=== PATIENT | female | born 1955 | race Caucasian/White ===

== ENCOUNTER → 2019-12-19 12:27 | Outpatient (CLI) | payer MEDICARE, OTHER, SELFPAY ==
--- NOTE | ~2019-12-19 | MM_ITS ---
EXAMINATION: MM screening cheli BI w cristina HISTORY: Screening TECHNIQUE: Craniocaudal and mediolateral oblique 3-D tomosynthesis images were obtained and synthetic 2-D images were generated. CAD analysis was submitted and interpreted. COMPARISON: Comparison to multiple prior studies sequentially, with oldest reviewed study dated 12/04. BREAST PARENCHYMAL COMPOSITION: There are scattered areas of fibroglandular density. FINDINGS: There is no evidence of suspicious mass, calcification, or architectural distortion to sugg est malignancy in either breast. There has been no suspicious interval change. IMPRESSION: 1. No mammographic evidence of malignancy. 2. Recommend routine screening mammography in one year. BI-RADS Category 1: Negative Reviewed, dictated and finalized at location A.
== END ==
PROVIDERS: PCP Internal Medicine; Visit Provider Nurse Practitioner
DX: Z12.31 Encounter for screening mammogram for malignant neoplasm of breast (principal)
CPT/HCPCS: 77063; 77067

== ENCOUNTER 2019-12-28 15:08 | Outpatient (CLI) | payer MEDICARE, OTHER, SELFPAY ==
--- NOTE | ~2019-12-28 | US_ITS ---
EXAMINATION: US thyroid DATE: 12/28/2019 15:38 INDICATION: Nontoxic single thyroid nodule. TECHNIQUE: Multiple ultrasound images of the thyroid were obtained. COMPARISON: None. FINDINGS: The right thyroid lobe measures 4.5 x 2.8 x 2.2 cm. The left thyroid lobe is not visualized and is r eportedly surgically absent. 7 mm simple appearing anechoic cyst in the right thyroid. Wider than stephen l complex mixed solid hypoechoic and anechoic cystic nodule with smooth margins and without echogenic foci at the inferior right thyroid lobe measuring 1.1 cm in maximal diameter without internal echoge [place] foci. (TI-RADS 3, mildly suspicious , FNA if >=2.5 cm, annual followup is >1.5 cm). IMPRESSION: 1. 1.1 cm TI RADS 3 right thyroid nodule and 6 mm simple cyst neither meeting criteria for biopsy or follow-up. 2. Status post left thyroidectomy. Reviewed, dictated and finalized at location B. IMPRESSION: 1. 1.1 cm TI RADS 3 right thyroid nodule and 6 mm simple cyst neither meeting c riteria for biopsy or follow-up. 2. Status post left thyroidectomy.
== END 2019-12-28 15:09 | disposition home or self-care (01) ==
PROVIDERS: PCP Internal Medicine; Visit Provider Otolaryngology
DX: E04.1 Nontoxic single thyroid nodule (principal)
CPT/HCPCS: 76536

== ENCOUNTER 2020-12-30 11:09 | Outpatient (CLI) | payer MEDICARE, SELFPAY ==
--- NOTE | ~2020-12-30 | US_ITS ---
EXAMINATION: US thyroid EXAM DATE: 12/30/2020 11:39 INDICATION: Thyroid nodule E04.1 Nontoxic single thyroid nodule. TECHNIQUE: Multiple grayscale and Doppler images of the thyroid were obtained (by a technologist who performed the scan) and subsequently reviewed. Individual nodules and recommendations may be reporte d in accordance with TI-RADS system as designated by the 2017 ACR White Paper TI-RADS committee. Comp hernandez is made to prior examination from 12/28/2019. FINDINGS: The right there are lobe measures 4.1 x 1.7 x 2.1 cm. The left thyroid lobe has been resected. There is an unremarkable left thyroidectomy bed. Several right thyroid lobe nodules, largest measuring 1.1 cm, stable. IMPRESSION: 1. Mild right thyromegaly with stable nodules, likely benign. 2. Unremarkable left thyroidectomy bed. Return to clinical follow-up and if additional palpable abnormality develops a repeat ultrasound can be obtained. Reviewed, dictated and finalized at location A.
== END 2020-12-30 11:10 | disposition home or self-care (01) ==
LOC: ANHIMG 11:15
PROVIDERS: PCP Internal Medicine; Visit Provider Otolaryngology
DX: E04.1 Nontoxic single thyroid nodule (principal)
CPT/HCPCS: 76536

== ENCOUNTER → 2021-01-08 11:07 | Outpatient (CLI) | payer MEDICARE, SELFPAY ==
--- NOTE | ~2021-01-08 | DEXA_ITS ---
Bone Density Report Name: Marianne Garcia Age: 65 Sex: Female Ethnicity: White Date of : 1955 Indication: postmenopausal osteoporosis; monitoring treatment; hysterectomy; Referring Provider: MARY ANNE, EDWARDO Study: Bone densitometry was performed. Exam Date: January 08, 2021 Accession number: [id number] Bone Density: Region BMD T-score Z-score Classification AP Spine (L1-L4) 0.831 -2.0 0.0 Osteopenia Femoral Neck (Left) 0.700 -1.3 0.3 Osteopenia Total Hip (Left) 0.838 -0.9 0.5 Normal Femoral Neck (Right) 0.740 -1.0 0.7 Normal Total Hip (Right) 0.829 -0.9 0.4 Normal Total Hip Mean 0.834 -0.9 0.5 Normal World Health Organization criteria for BMD impression classify patients as: Normal (T-score at or above -1.0), Osteopenia (T-score between -1.0 and -2.5), or Osteoporosis (T-score at or below -2.5). 10-year Fracture Risk: FRAX not reported because: Treated for osteoporosis Previous Exams: Region Exam Age BMD T-score BMD Change BMD Change Date g/cm2 vs Baseline vs Previous AP Spine(L1-L4) 01/08/2021 65 0.831 -2.0 0.038* 0.097* 12/14/2018 63 0.734 -2.8 -0.060* -0.016 12/08/2016 61 0.750 -2.7 -0.043* 0.007 11/28/2014 59 0.743 -2.8 -0.051* -0.046* 11/27/2012 57 0.789 -2.3 -0.005 0.020 11/23/2010 55 0.768 -2.5 -0.025* -0.011 11/15/2008 53 0.779 -2.4 -0.014 -0.014 10/17/2006 51 0.793 -2.3 Total Hip(Left) 01/08/2021 65 0.838 -0.9 0.054* -0.012 12/14/2018 63 0.849 -0.8 0.066* 0.007 12/08/2016 61 0.842 -0.8 0.058* 0.027 11/28/2014 59 0.815 -1.0 0.032* 0.041* 11/27/2012 57 0.775 -1.4 -0.009 -0.013 11/23/2010 55 0.788 -1.3 0.004 -0.006 11/15/2008 53 0.794 -1.2 0.010 0.010 10/17/2006 51 0.784 -1.3 Total Hip(Right) 01/08/2021 65 0.829 -0.9 0.069* -0.018 12/14/2018 63 0.847 -0.8 0.087* 0.040* 12/08/2016 61 0.807 -1.1 0.048* -0.015 11/28/2014 59 0.822 -1.0 0.063* -0.003 11/27/2012 57 0.825 -1.0 0.066* 0.074* 11/23/2010 55 0.751 -1.6 -0.008 -0.016 11/15/2008 53 0.768 -1.4 0.008 0.008 10/17/2006 51 0.760 -1.5 *Denotes significance at 95% confidence level, LSC for AP Spine =
--- NOTE | ~2021-01-08 | MM_ITS ---
EXAMINATION: MM screening cheli BI w cristina HISTORY: Screening TECHNIQUE: Craniocaudal and mediolateral oblique 3-D tomosynthesis images were obtained and synthetic 2-D images were generated. CAD analysis was submitted and interpreted. COMPARISON: Comparison to multiple prior studies sequentially, with oldest reviewed study dated 12/08. BREAST PARENCHYMAL COMPOSITION: There are scattered areas of fibroglandular density. FINDINGS: There is no evidence of suspicious mass, calcification, or architectural distortion to sugg est malignancy in either breast. There has been no suspicious interval change. IMPRESSION: 1. No mammographic evidence of malignancy. 2. Recommend routine screening mammography in one year. BI-RADS Category 1: Negative Reviewed, dictated and finalized at location A.
== END ==
PROVIDERS: PCP Internal Medicine; Visit Provider Nurse Practitioner
DX: Z12.31 Encounter for screening mammogram for malignant neoplasm of breast (principal); M81.0 Age-related osteoporosis without current pathological fracture; M85.88 Other specified disorders of bone density and structure, other site; M85.852 Other specified disorders of bone density and structure, left thigh
CPT/HCPCS: 77063; 77067; 77080

== ENCOUNTER → 2021-11-04 11:49 | Outpatient (CLI) | payer MEDICARE, SELFPAY ==
--- NOTE | ~2021-11-04 | US_ITS ---
EXAMINATION: US thyroid DATE: 11/04/2021 12:06 INDICATION: Nontoxic single thyroid nodule. TECHNIQUE: Multiple ultrasound images of the thyroid were obtained. COMPARISON: Thyroid ultrasound 12/30/2020, 12/28/2019 FINDINGS: The right thyroid lobe measures 4.9 x 2.1 x 2.1 cm. The left thyroid lobe is absent. In the right thy roid lobe, there is a 12 mm solid, hypoechoic, wider than tall nodule with smooth margin without echo genic foci (TI-RADS TR4), stable in size from 12/28/19. In the right thyroid lobe, there is a 6 mm ellen d, hypoechoic, wider than tall nodule with smooth margin without echogenic foci (TR4). In the right t hyroid lobe, there is a 7 mm solid, hypoechoic, wider than tall nodule with smooth margin without ech ogenic foci (TR4). IMPRESSION: 1. Multinodular goiter. Consider thyroid ultrasound in one year. Reviewed, dictated and finalized at location A.
== END ==
PROVIDERS: PCP Internal Medicine; Visit Provider Otolaryngology
DX: E04.2 Nontoxic multinodular goiter (principal)
CPT/HCPCS: 76536

== ENCOUNTER → 2022-01-21 10:19 | Outpatient (CLI) | payer MEDICARE, SELFPAY ==
--- NOTE | ~2022-01-21 | MM_ITS ---
EXAMINATION: MM screening cheli BI w cristina HISTORY: Screening mammogram TECHNIQUE: Craniocaudal and mediolateral oblique 3-D tomosynthesis images were obtained and synthetic 2-D images were generated. CAD analysis was submitted and interpreted. COMPARISON: 01/08/2021, 12/19/2019, 12/14/2018 bilateral screening mammogram examinations BREAST PARENCHYMAL COMPOSITION: There are scattered areas of fibroglandular density. FINDINGS: There is no evidence of suspicious mass, calcification, or architectural distortion to sugg est malignancy in either breast. There has been no suspicious interval change. IMPRESSION: 1. No mammographic evidence of malignancy. 2. Recommend routine screening mammography in one year. BI-RADS Category 1: Negative Reviewed, dictated and finalized at location A.
== END ==
PROVIDERS: PCP Internal Medicine; Visit Provider Obstetrics & Gynecology Gynecology
DX: Z12.31 Encounter for screening mammogram for malignant neoplasm of breast (principal)
CPT/HCPCS: 77063; 77067

== ENCOUNTER 2022-08-23 10:21 | Emergency (ER) | payer MEDICARE, SELFPAY ==
--- NOTE | ~2022-08-23 | XR_ITS ---
EXAMINATION: XR ribs RT 2V w CXR 2V DATE: 08/23/2022 11:00 INDICATION: Right posterior rib pain post fall 4 days prior TECHNIQUE: Frontal and lateral views of the chest and 3 views of the right ribs were obtained. COMPARISON: Chest radiograph dated 04/15/2008 FINDINGS: Hypoplastic bilateral 12th ribs. No rib fractures identified. Mild eventration along the right hemidi aphragm. Mild linear discoid atelectasis/scarring in the left mid and bilateral lower lung zones. No pulmonary edema, pleural effusion or pneumothorax. Cardiomediastinal silhouette is normal. Surgical c lip at the anterior base of the neck likely related to prior reported left thyroidectomy. IMPRESSION: 1. No rib fractures identified. 2. Mild linear discoid atelectasis in the left mid and bilateral lower lung zones. Reviewed, dictated and finalized at location B. IMPRESSION: 1. No rib fractures identified. 2. Mild linear discoid atelectasis in the left mid and bilateral lower lung zon es.
[2022-08-23 10:28] VITALS: BP 154/89; PULSE 91; RESP 20; TEMP 37.7; O2SAT 97
--- NOTE | 2022-08-23 10:28 | ED.FALL ---
HPI - Fall General Chief Complaint: Fall Stated Complaint: Fall Injury/Back/Shortness of Breath Time Seen by Provider: 08/23/22 10:28 Source: patient and RN notes reviewed History of Present Illness HPI Narrative: Patient is a 66-year-old female presents to urgent care with complaints of upper right back pain after a fall on night. Patient states that she has issues ambulating due to chronic left leg/knee pain and arthritis. Patient states that she hit the side of her bed and went down to the floor. Patient states that her right arm twisted behind her back when she fell. Patient states that she did not notice the pain until she was grabbing a lawn chair at the back of her daughter's car on Tuesday and ?heard a pop in her back?. Patient states that it is now hurting to take a deep breath or move in certain motions. Patient states that she takes pain medication for bilateral knee discomfort and has not increased anything due to the fall. Patient denies hitting her head or any loss of consciousness. No other acute complaints. No acute distress noted. Patient aware of the plan of care. Some parts of this dictation were generated by voice recognition software and may contain typographical and/or grammatical inaccuracies. Related Data Home Medications Medication Instructions Recorded Confirmed albuterol sulfate 90 mcg/actuation 1 inhalation inhalation Q4H 12/27/19 01/13/21 aerosol inhaler atorvastatin 80 mg tablet 80 mg PO DAILY 12/27/19 01/13/21 calcium carbonate 260 mg calcium 260 mg PO DAILY 12/27/19 01/13/21 (650 mg) chewable tablet (Albaro-Mint) cholecalciferol (vitamin D3) 1,250 1,250 mcg PO MONTHLY 12/27/19 01/13/21 mcg (50,000 unit) capsule estradiol 10 mcg vaginal tablet 10 mcg vaginal 2XW 12/27/19 01/13/21 (Vagifem) fluticasone propionate 50 1 spray intranasal BID 12/27/19 01/13/21 mcg/actuation nasal spray,suspension (Allergy Relief (fluticasone)) furosemide 20 mg tablet 20 mg PO QAM 12/27/19 01/13/21 omeprazole 20 mg capsule,delayed 20 mg PO DAILY 12/27/19 01/13/21 release telmisartan 40 mg tablet 40 mg PO DAILY 12/27/19 01/13/21 umeclidinium 62.5 mcg-vilanterol 1 inhalation inhalation DAILY 12/27/19 01/13/21 25 mcg/actuation powdr for inhalation (Anoro Ellipta) amlodipine 5 mg tablet mg 08/23/22 Allergies Allergy/AdvReac Type Severity Reaction Status Date / Time Penicillins Allergy Mild hives Verified 01/13/21 08:19 Sulfa (Sulfonamide Allergy Mild hives Verified 01/13/21 08:19 Antibiotics) Review of Systems Review of Systems: CONSTITUTIONAL: Denies fever, chills, or sweats. EYES: Denies visual changes, redness, or discharge. ENT: Denies rhinorrhea, congestion, sore throat, or otalgia. CARDIOVASCULAR: Denies chest pain, palpitations, or edema. RESPIRATORY: Denies cough or dyspnea. Reports of pain with deep breathing GASTROINTESTINAL: Denies abdominal pain, nausea, vomiting, or diarrhea. GENITOURINARY: Denies dysuria or hematuria. SKIN: Denies rash or itching. MUSCULOSKELETAL: Reports of upper back pain and discomfort NEUROLOGIC: Denies headache, numbness, or weakness. All other systems reviewed are negative, except as documented in HPI. [facility] Social History Social History (Updated 01/13/21 @ 08:20 by Hafsa Freedman MA) Smoking status: Never smoker Alcohol intake: never Substance use: never Comments At the time of my signature, I reviewed and agree with the nursing past medical, surgical, social, and family history. There is no relevant family history pertinent to the patient complaint. Exam Narrative: GENERAL: This is a well-nourished, well-developed patient, in no apparent distress. HEAD: normocephalic, atraumatic. EYES: PERRL. Sclera clear/white. Vision is grossly intact. EARS: External ears normal NOSE: External nose normal with no obvious nasal discharge, nares without redness, no rhinorrhea. THROAT: Mucous membranes moist over no NECK: Nec
== END 2022-08-23 11:26 | disposition home or self-care (01) ==
PROVIDERS: Emergency Provider Nurse Practitioner Family; PCP Internal Medicine
DX: M54.89 Other dorsalgia (principal); E78.00 Pure hypercholesterolemia, unspecified; I10 Essential (primary) hypertension
CPT/HCPCS: 71046; 71100; 99213; G0463

== ENCOUNTER 2023-01-17 13:39 | Outpatient (CLI) | payer MEDICARE, SELFPAY ==
--- NOTE | ~2023-01-17 | US_ITS ---
US thyroid INDICATION: Nontoxic thyroid nodule TECHNIQUE: Real-time sonographic images of the thyroid gland were obtained. COMPARISON: Ultrasound dated 11/04/2021 FINDINGS: The right thyroid lobe measures 4.3 x 1.9 x 2 cm. The left thyroid gland is surgically abse nt. There are multiple right thyroid nodules the largest right thyroid nodule is mixed solid and cyst ic, hypoechoic, wider than tall, smoothly marginated without echogenic foci measuring 1.4 x 1.3 x 1.1 cm, TR 3. IMPRESSION: 1. Heterogeneous right thyroid lobe with multiple nodules, largest measuring 1.4 cm, TR3. 3. Recommend follow-up ultrasound in 12 months. Reviewed, dictated and finalized at location L. IMPRESSION: 1. Heterogeneous right thyroid lobe with multiple nodules, largest measuring 1 .4 cm, TR3. 3. Recommend follow-up ultrasound in 12 months.
== END 2023-01-17 13:40 | disposition home or self-care (01) ==
PROVIDERS: PCP Internal Medicine; Visit Provider Otolaryngology
DX: E04.1 Nontoxic single thyroid nodule (principal)
CPT/HCPCS: 76536

== ENCOUNTER → 2023-03-24 10:48 | Outpatient (CLI) | payer MEDICARE, SELFPAY ==
--- NOTE | ~2023-03-24 | DEXA_ITS ---
Bone Density Report Name: EDEL DUGGAN Age: 67 Sex: Female Ethnicity: White Date of : 1955 Indication: osteopenia; monitoring treatment; prior fracture; hysterectomy; postmenopausal Referring Provider: MARY ANNE, EDWARDO Study: Bone densitometry was performed. Exam Date: March 24, 2023 Accession number: [id number] Bone Density: Region BMD T-score Z-score Classification AP Spine (L1-L4) 0.864 -1.7 0.4 Osteopenia World Health Organization criteria for BMD impression classify patients as: Normal (T-score at or above -1.0), Osteopenia (T-score between -1.0 and -2.5), or Osteoporosis (T-score at or below -2.5). Previous Exams: Region Exam Age BMD T-score BMD Change BMD Change Date g/cm2 vs Baseline vs Previous AP Spine(L1-L4) 03/24/2023 67 0.864 -1.7 0.070* 0.033* 01/08/2021 65 0.831 -2.0 0.038* 0.097* 12/14/2018 63 0.734 -2.8 -0.060* -0.016 12/08/2016 61 0.750 -2.7 -0.043* 0.007 11/28/2014 59 0.743 -2.8 -0.051* -0.046* 11/27/2012 57 0.789 -2.3 -0.005 0.020 11/23/2010 55 0.768 -2.5 -0.025* -0.011 11/15/2008 53 0.779 -2.4 -0.014 -0.014 10/17/2006 51 0.793 -2.3 *Denotes significance at 95% confidence level, LSC for AP Spine = 0.022 g/cm2 Clinical Information Provided by Patient: Has had a low trauma fracture Is being treated for osteoporosis Has used the following medications: Prolia (i.e. denosumab), Vitamin D, Calcium Has the following medical conditions: Hysterectomy Patient maximum height was 62.5 Menopause Age: 48 Drinks caffeinated beverages Onset of menses at age 10 Number of children 3 Impression: The patient has low bone mass, based on the Total Spine T-score. The patient has risk factors, including: previous fracture. No significant bone loss was observed. Discussion: PATIENT UNDER TREATMENT WITH NO SIGNIFICANT BMD LOSS SINCE LAST EXAM. In an untreated patient, BMD typically declines with age. A lack of decline or gain is usually a sign that treatment is efficacious and fracture risk is reduced. It is important to ask patients whether they are taking their medications and to encourage continued and appropriate compliance with their osteoporosis therapies to reduce fracture risk. It is also important to review their risk factors and encourage appropriate calcium and vitamin D intakes, exercise, fall prevention and other lifestyle measures. Follow-Up: Consider a repeat BMD and Vertebral Fracture Assessment (VFA) exam in 2 years or sooner if medically necessary, to reassess this patient's status. Reported by: NATALIIA on 03/24/2023 1
--- NOTE | ~2023-03-24 | MM_ITS ---
EXAMINATION: MM screening cheli BI w cristina HISTORY: Screening mammogram TECHNIQUE: Craniocaudal and mediolateral oblique 3-D tomosynthesis images were obtained and synthetic 2-D images were generated. CAD analysis was submitted and interpreted. COMPARISON: 01/21/2022, 01/08/2021, 12/19/2019 and lateral screening mammogram examinations BREAST PARENCHYMAL COMPOSITION: There are scattered areas of fibroglandular density. FINDINGS: There is no evidence of suspicious mass, calcification, or architectural distortion to sugg est malignancy in either breast. There has been no suspicious interval change. IMPRESSION: 1. No mammographic evidence of malignancy. 2. Recommend routine screening mammography in one year. BI-RADS Category 1: Negative Reviewed, dictated and finalized at location A. 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
== END ==
PROVIDERS: PCP Internal Medicine; Referring Provider Obstetrics & Gynecology Gynecology; Visit Provider Nurse Practitioner
DX: Z12.31 Encounter for screening mammogram for malignant neoplasm of breast (principal); M81.0 Age-related osteoporosis without current pathological fracture; M85.88 Other specified disorders of bone density and structure, other site
CPT/HCPCS: 77063; 77067; 77080

== ENCOUNTER 2024-01-20 09:40 | Outpatient (CLI) | payer MEDICARE, SELFPAY ==
--- NOTE | ~2024-01-20 | US_ITS ---
US thyroid INDICATION: Nontoxic thyroid nodule TECHNIQUE: Real-time sonographic images of the thyroid gland were obtained. COMPARISON: No prior studies for comparison. FINDINGS: The right thyroid lobe measures 4.9 x 2.1 x 2.2 cm.. There is a heterogeneous hypoechoic pr edominantly solid right thyroid mass measuring 1.3 x 1.3 x 1.2 cm. This mass is slightly taller than wide, smoothly marginated without echogenic foci. No significant interval change compared with prior examination allowing for differences in technique. IMPRESSION: 1. Stable right thyroid nodule, likely benign. Recommend follow-up ultrasound in 12 months. Reviewed, dictated and finalized at location B.
== END 2024-01-20 09:41 | disposition home or self-care (01) ==
LOC: ANHIMG 09:43
PROVIDERS: Visit Provider Otolaryngology
DX: E04.1 Nontoxic single thyroid nodule (principal)
CPT/HCPCS: 76536

== ENCOUNTER 2024-11-03 08:34 | Emergency (ER) | payer MEDICARE, SELFPAY ==
--- OUTSIDE RECORDS SUMMARY | 2024-11-03 08:36 | XMS_ITS | Encounter Summary ---
Author Organization [facility] Address [address] [place] [address] Phone Care Team Providers Care Head Of English Name Role Phone Juan Li MD Primary Care Provider [phone] Juan Li MD Primary Care Provider [phone] Iftikhar Harrison MD Primary Care Provider [phone] Encounter Details Date Type Department Care Team (Late st Contact Info) Description 11/15/2008 Orders Only [facility] Scanning, Provider Social History Tobacco Use Types Packs/Day Years Used Date Smoking Tobacco: Never Assessed Comments Unknown Sex and Gender Information Value Date Recorded Sex Assigned at Not on file 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 Gender Identity Not on file Sexual Orientation Straight 08/28/2018 1: 45 PM CDT documented as of this encounter Plan of Treatment Not on file documented as of this encounter Procedures Procedure Name Priority Date/Time Associated Diagnosis Comments SCAN - RADIOLOGY/IMAGING 11/15/2008 documented in this encounter Results * SCAN - RADIOLOGY/IMAGING (11/15/2008) Anatomical Region Laterality Modality Other us Provider Scanning Final Result documented in this encounter Visit Diagnoses Not on filedocumented in this encounter Additional Health Concerns Infection Onset Date Last Indicated Resolved Time COVID: Suspected 10/21/2020 10/21/2020 10/21/2020 9:42 AM CDT COVID19 10/21/2020 10/21/2020 11/04/2020 3:05 AM CDT COVID: Recovered Comment:Added based on recent COVID infection. 11/04/2020 11/06/2020 03/04/2021 3:[address] documented as of this encounter Care Teams Head Of English Relationship Specialty Start Date End Date Juan Li MD PCP - General 10/15/13 08/01/23 Juan Li MD PCP - General 11/05/08 10/14/13 Iftikhar Harrison MD [address] [facility] [address] [place] [address] [place] [id number] PCP - General Family Medicine 08/02/23 documented as of this encounter
--- OUTSIDE RECORDS SUMMARY | 2024-11-03 08:36 | XMS_ITS | Referral Summary ---
Author Organization [facility] Address [address] [place] [address] Care Team Providers Care Photonics Engineering Technologist Name Role Phone Iftikhar Harrison MD Primary Care Provider [phone] Encounters Date Type Department Care Team Description 10/29/2024 Orders Only [facility] Infusion Therapy [address] [place] [address] Office [address] [place] [address] Vicky Philip MD 10/05/[address] [place] [address] Vicky Philip MD Treatment Plan Update ([facility] ) 10/05/2024 11:00 AM CDT Office Visit [address] [place] [address] Vicky Philip MD Age-related osteoporosis without current pathological fracture (Primary Dx); Bone loss; Atypical fracture of femur, sequela; Prediabetes 10/05/2024 10:30 AM CDT Clinical Support [address] [place] [address] Age-related osteoporosis without current pathological fracture (Primary Dx); Osteoporosis, unspecified osteoporosis type, unspecified pathological fracture presence 09/11/2024 ACO Quality [facility] Accountable Care Organization [address] [place] [id number] Patricia Lara 08/09/2024 7:30 AM CDT Office Visit [facility] Medical Group Primary [facility] at [place] [address] [facility] [address] [place] [address] Iftikhar Harrison MD Gastroesophageal reflux disease, unspecified whether esophagitis present (Primary Dx); Chest pain, unspecified type; Class 1 obesity due to excess calories with serious comorbidity and body mass index (BMI) of 31.0 to 31.9 in adult; Benign hypertension 08/07/2024 [facility] Post Discharge Follow up phone call [facility] Acute Medicine [address] [place] [address] Mckay Barrera from Last 3 Months Allergies Active Allergy Reactions Criticality Noted Date Comments Michael Inhibitors Cough Low Reaction: cough, Morphine Nausea & Vomiting Medium 09/03/2022 Nitrofurantoin Swelling,Rash Medium Reaction: rash, swelling, Penicillins Rash Medium Reaction: Rash, , Sulfa (Sulfonamide Antibiotics) Hives Medium Sulfanilamide Rash Medium Reaction: Rash, Medications cetirizine (ZyrTEC) 10 mg tablet take 1 tablet (10MG) by oral route every day 0 1 Active omeprazole 20 mg tablet,delayed release (DR/EC) Take 1 tablet (20 mg total) by mouth daily Active acetaminophen 500 mg capsuleIndicati ons:Pain Take 2 capsules (1,000 mg total) by mouth every 6 (six) hours as needed for pain 3 Active ibuprofen 200 mg tab/cap Take 1 tablet/capsule (200 mg total) by mouth as needed Active multivitamin (MULTIPLE VITAMINS ORAL) Take 1 tablet by mouth daily Active CALCIUM ORAL Take 1 tablet/chew tab by mouth daily Active amLODIPine (NORVASC) 10 mg tablet Take 1 tablet (10 mg total) by mouth daily 90 tablet 3 4 Active naproxen (NAPROSYN) 500 mg tablet Take 1 tablet (500 mg total) by mouth daily as needed for pain Active Anoro Ellipta 62.5-25 mcg/actuation blister with device Inhale 1 puff daily 3 each 3 4 Active losartan (COZAAR) 50 mg tablet Take 1 tablet (50 mg total) by mouth daily 90 tablet 3 5 Active metoprolol XL (TOPROL-XL) 25 mg extended release tablet TAKE 1 TABLET (25 MG TOTAL) BY MOUTH DAILY. 90 tablet 3 5 07/03/19 26 Active atorvastatin (LIPITOR) 80 mg tablet TAKE 1 TABLET DAILY 100 tablet 5 Active fluticasone propionate (FLONASE) 50 mcg/actuation nasal spray USE 2 SPRAYS IN EACH NOSTRIL DAILY 48 g 1 5 Active albuterol HFA (PROVENTIL HFA,VENTOLIN HFA,PROAIR HFA) 90 mcg/actuation inhaler USE 2 INHALATIONS BY MOUTH EVERY 4 HOURS NEEDED FOR WHEEZING 108 g 3 5 Active teriparatide (Forteo) 20 mcg/dose (560mcg/2.24mL) injection Inject 0.08 mL (20 mcg total) under the skin daily 7.2 mL 3 5 10/30/19 26 Active pen needle, diabetic (Pen Needle) 31 gauge x 5/16 needle Use as directed once a day 100 each 3 5 Active Active Problems Problem Noted Date Diagnosed Date Chest pain, unspecified type 07/31/2024 Annual physical exam 01/05/2024 Assessment & Plan (01/05/2024 11:19 AM CDT): Discussed lifestyle modifications, diet and exercise. Routine blood work ordered/reviewed today. Yearly vision and dental examinations. 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 Assessment & Plan (07/11/2024 10:17 AM CDT): Wt Readings from Last 3 Encounters: 07/11/24 81.6 kg (179 lb 14.4 oz) 05/18/24 80.7 kg (178 lb) 05/10/24 81.2 kg (179 lb) BMI Readings from Last 3 Encounters: 07/11/24 32.65 kg/m 05/18/24 32.30 kg/m 05/10/24 32.73 kg/m Not at goal of bmi <30 Continue diet and exercise BMI Follow-up includes: nutrition counseling and exercise counseling. Assessment & Plan (01/05/2024 11:03 AM CDT): Wt Readings from Last 3 Encounters: 01/05/24 81.5 kg (179 lb 9.6 oz) 12/13/23 81.2 kg (179 lb) 12/09/23 81.2 kg (179 lb) BMI Readings from Last 3 Encounters: 01/05/24 32.84 kg/m 12/13/23 32.74 kg/m 12/09/23 32.22 kg/m Not at goal of bmi <30 Continue diet and exercise BMI Follow-up includes: nutrition counseling and exercise counseling. Assessment & Plan (08/02/2023 11:14 AM CDT): Wt Readings from Last 3 Encounters: 08/02/23 79.4 kg (175 lb 1.6 oz) 07/26/23 80.5 kg (177 lb 6.4 oz) 07/20/23 80.2 kg (176 lb 12.8 oz) BMI Readings from Last 3 Encounters: 08/02/23 31.50 kg/m 07/26/23 31.93 kg/m 07/20/23 31.82 kg/m Not at goal of bmi <30 Continue diet and exercise BMI Follow-up includes: nutrition counseling and exercise counseling. Paroxysmal ventricular tachycardia 01/21/2023 Assessment & Plan (07/11/2024 10:18 AM CDT): Following with cardio Continue toprol xl 25 mg every day Assessment & Plan (01/05/2024 11:06 AM CDT): Following with cardio Continue toprol xl 25 mg every day Frequent PVCs 01/03/2023 Assessment & Plan (08/02/2023 10:59 AM CDT): Stable Continue rate control medication Assessment & Plan (01/03/2023 6:06 PM CDT): Cardiology referral for frequent PVCs and episode of nonsustained ventricular tachycardia. Bradycardia 11/05/2022 Assessment & Plan (02/13/2023 10:48 PM CDT): Check TSH before next visit. Twenty-one day CardioNet monitor and call back for results. Call back with any episodes of dizziness lightheadedness presyncope chest pain shortness breath palpitations. Stress fracture of left femur 09/03/2022 Primary osteoarthritis of left knee 10/02/2021 Internal derangement of left knee 10/02/2021 Personal history of colonic polyps 08/20/2021 Overview (08/20/2021): Added automatically from request for surgery [id number] Hamstring tendonitis 04/20/2021 Assessment & Plan (04/20/2021 12:01 PM SHEEP OR CALF GRADER): Rest ice elevation and increase her naproxen to 500 mg p.o. b.i.d. and warned of GI and cardiovascular side effects. Take with food. Physical therapy referral. Call back for orthopedics if needed. Medicare annual wellness visit, subsequent 11/21 Assessment & Plan (07/11/2024 10:51 AM CDT): A yearly Medicare Annual Wellness Visit has been performed today. Marianne Garcia is not up to date on screening tests. They are in need of hep b screening - these have been ordered. Patient is up to date on needed preventative vaccinations; Assessment & Plan (08/02/2023 11:13 AM CDT): A yearly Medicare Annual Wellness Visit has been performed today. Marianne Garcia is not up to date on screening tests. They are in need of hep b screening - these have been ordered. Patient is up to date on needed preventative vaccinations; Assessment & Plan (11/27/2020 1:43 PM CDT): We discussed a comprehensive list of medical conditions and proposed recommendations for each. We discussed the importance of increased exercise, fall prevention, proper nutrition, and suggested joining [facility] to accomplish most of these goals. Patient was given an age appropriate Medicare preventive services checklist. Please see the EMR regarding details of their health risk assessment and preventive services checklist. Will see her back in 6 months with lab sooner if needed. Assessment & Plan (11/22/2019 11:37 AM CDT): We discussed a comprehensive list of medical conditions and proposed recommendations for each. We discussed the importance of increased exercise, fall prevention, proper nutrition, and suggested joining [facility] to accomplish most of these goals. Patient was given an age appropriate Medicare preventive services checklist. Please see the EMR regarding details of their health risk assessment and preventive services checklist. Will see her back in 6 months with lab sooner if needed. DDD (degenerative disc disease), lumbar 10/06/19 17 Assessment & Plan (11/09/2016 8:57 AM CDT): Lumbar radiculopathy improved with the anti-inflammatories and physical therapy will continue for now. Will extended physical therapy for few more weeks. If her lumbar back pain and numbness and tingling of her legs do not completely resolve, I have asked her to call back in few weeks for MRI of her lumbar spine and pain management referral. Obstructive sleep apnea syndrome 10/29/2013 Overview (07/30/2016): MARILYN Assessment & Plan (01/03/2023 6:07 PM CDT): Patient is compliant with the CPAP machine and gets symptomatic relief. Assessment & Plan (01/01/2022 9:41 AM CDT): Patient is compliant with the CPAP machine and gets symptomatic relief. Assessment & Plan (11/27/2020 1:42 PM CDT): Patient is compliant with the CPAP machine and gets symptomatic relief. Assessment & Plan (11/22/2019 11:35 AM CDT): Patient is compliant with the CPAP machine and gets symptomatic relief. Assessment & Plan (12/05/2018 12:04 AM CDT): Patient is compliant with the CPAP machine and gets symptomatic relief. Assessment & Plan (08/07/2018 10:08 AM CDT): Patient is doing very well on her CPAP machine and is using it on a regular basis and has a much improved AHI and symptoms have resolved. Continue CPAP therapy at present settings. Assessment & Plan (12/11/2017 8:54 PM CDT): Patient is compliant with the CPAP machine and gets symptomatic relief. Assessment & Plan (11/09/2016 8:57 AM CDT): Lateral positional therapy recommended along with weight loss. Benign hypertension 09/08/2013 Overview (07/28/2016): BENIGN HYPERTENSION Assessment & Plan (08/09/2024 7:52 AM CDT): BP Readings from Last 3 Encounters: 08/09/24 128/76 08/03/24 122/79 08/02/24 121/80 Vitals BP 128/76 (BP Location: Left arm, Patient Position: Sitting) Pulse 70 Resp 16 Ht 157.5 cm (5' 2.01) Wt 82 kg (180 lb 12.8 oz) SpO2 98% BMI 33.06 kg/m Lab Results Component Value Date POTASSIUM 4.1 08/02/2024 At goal at this time Continue llosartan 50 mg every day, toprol xl 25 mg every day , norvasc 10 mg every day Assessment & Plan (07/11/2024 10:17 AM CDT): BP Readings from Last 3 Encounters: 07/11/24 122/80 05/10/24 125/81 02/03/24 121/78 Vitals BP 122/80 (BP Location: Left arm, Patient Position: Sitting) Pulse 81 Resp 16 Ht 158.1 cm (5' 2.24) Wt 81.6 kg (179 lb 14.4 oz) SpO2 96% BMI 32.65 kg/m Lab Results Component Value Date POTASSIUM 4.4 01/10/2024 At goal at this time Continue llosartan 50 mg every day, toprol xl 25 mg every day , norvasc 10 mg every day Assessment & Plan (01/05/2024 11:21 AM CDT): BP Readings from Last 3 Encounters: 01/05/24 108/78 12/13/23 144/79 12/09/23 138/85 Vitals BP 108/78 (BP Location: Left arm, Patient Position: Sitting) Pulse 81 Resp 16 Ht 157.5 cm (5' 2.01) Wt 81.5 kg (179 lb 9.6 oz) SpO2 97% BMI 32.84 kg/m Lab Results Component Value Date POTASSIUM 4.4 07/20/2023 At goal at this time Continue llosartan 50 mg every day, toprol xl 25 mg every day , norvasc 10 mg every day Assessment & Plan (08/02/2023 10:59 AM CDT): BP Readings from Last 3 Encounters: 08/02/23 124/78 07/26/23 144/82 07/04/23 104/62 Vitals BP 124/78 (BP Location: Left arm, Patient Position: Sitting) Pulse 78 Resp 16 Ht 158.8 cm (5' 2.52) Wt 79.4 kg (175 lb 1.6 oz) SpO2 98% BMI 31.50 kg/m Lab Results Component Value Date POTASSIUM 4.4 07/20/2023 At goal at this time Continue llosartan 50 mg every day, toprol xl 25 mg every day , norvasc 10 mg every day Assessment & Plan (07/04/2023 10:19 AM CDT): Blood pressure well controlled on amlodipine, losartan, metoprolol. Patient will follow up with Dr. Harrison in 6 months for her future primary care and wellness visit. Assessment & Plan (01/03/2023 6:06 PM CDT): Blood pressure well losartan and amlodipine Assessment & Plan (01/01/2022 9:43 AM CDT): Well controlled on the current regimen. Avoidance of salt, proper body weight, and routine exercise recommended. Assessment & Plan (06/26/2021 2:17 PM SHEEP OR CALF GRADER): Well controlled on the current regimen. Avoidance of salt, proper body weight, and routine exercise recommended. Assessment & Plan (11/27/2020 1:42 PM CDT): Well controlled on the current regimen. Avoidance of salt, proper body weight, and routine exercise recommended. Assessment & Plan (11/22/2019 11:36 AM CDT): Well controlled on the current regimen. Avoidance of salt, proper body weight, and routine exercise recommended. Assessment & Plan (12/05/2018 12:04 AM CDT): Well controlled on the current regimen. Avoidance of salt, proper body weight, and routine exercise recommended. Assessment & Plan (12/11/2017 8:53 PM CDT): Well controlled on the current regimen. Avoidance of salt, proper body weight, and routine exercise recommended. Assessment & Plan (09/26/2017 9:51 AM CDT): Much better controlled on higher dose of Micardis. Avoidance of salt, increase exercise, weight loss recommended. Continue checking blood pressure at home record and bring to next visit. Assessment & Plan (11/09/2016 8:55 AM CDT): Well controlled on the current regimen. Avoidance of salt, proper body weight, and routine exercise recommended. Hyperlipidemia associated with type 2 diabetes [place] 09/08/2013 Overview (07/28/2016): HYPERLIPIDEMIA NEC/NOS Assessment & Plan (07/11/2024 10:22 AM CDT): Lab Results Component Value Date CHOL 194 01/10/2024 CHOL 192 12/02/2022 CHOL 181 12/15/2021 Lab Results Component Value Date HDL 50 01/10/2024 HDL 46 12/02/2022 HDL 44 12/15/2021 Lab Results Component Value Date LDLCALC 115 01/10/2024 LDLCALC 105 12/02/2022 LDLCALC 102 12/15/2021 LDL 116 10/22/2015 LDL 121 10/16/2014 LDL 111 10/15/2013 Lab Results Component Value Date TRIG 164 (H) 01/10/2024 TRIG 204 (H) 12/02/2022 TRIG 176 (H) 12/15/2021 No results found for: POCCHDLR No results found for: POCNONHDL No results found for: POCCHLPL At goal at this time Continue lipitor 80 mg every day Assessment & Plan (01/05/2024 11:06 AM CDT): Lab Results Component Value Date CHOL 192 12/02/2022 CHOL 181 12/15/2021 CHOL 185 05/26/2021 Lab Results Component Value Date HDL 46 12/02/2022 HDL 44 12/15/2021 HDL 40 05/26/2021 Lab Results Component Value Date LDLCALC 105 12/02/2022 LDLCALC 102 12/15/2021 LDLCALC 116 05/26/2021 LDL 116 10/22/2015 LDL 121 10/16/2014 LDL 111 10/15/2013 Lab Results Component Value Date TRIG 204 (H) 12/02/2022 TRIG 176 (H) 12/15/2021 TRIG 147 05/26/2021 No results found for: POCCHDLR No results found for: POCNONHDL No results found for: POCCHLPL At goal at this time Continue lipitor 80 mg every day Assessment & Plan (08/02/2023 10:58 AM CDT): Lab Results Component Value Date CHOL 192 12/02/2022 CHOL 181 12/15/2021 CHOL 185 05/26/2021 Lab Results Component Value Date HDL 46 12/02/2022 HDL 44 12/15/2021 HDL 40 05/26/2021 Lab Results Component Value Date LDLCALC 105 12/02/2022 LDLCALC 102 12/15/2021 LDLCALC 116 05/26/2021 LDL 116 10/22/2015 LDL 121 10/16/2014 LDL 111 10/15/2013 Lab Results Component Value Date TRIG 204 (H) 12/02/2022 TRIG 176 (H) 12/15/2021 TRIG 147 05/26/2021 No results found for: POCCHDLR No results found for: POCNONHDL No results found for: POCCHLPL At goal at this time Continue lipitor 80 mg every day Assessment & Plan (07/04/2023 10:18 AM CDT): Continue her atorvastatin check lipids and LFTs once or twice yearly. Diet exercise discussed. Assessment & Plan (01/03/2023 6:07 PM CDT): Well controlled on current therapy and will check a lipid panel and LFTs in 6 months. Assessment & Plan (01/01/2022 9:41 AM CDT): Well controlled on current therapy and will check a lipid panel and LFTs in 12 months. Assessment & Plan (06/26/2021 2:17 PM SHEEP OR CALF GRADER): Well controlled on current therapy and will check a lipid panel and LFTs in 6 months. Assessment & Plan (11/27/2020 1:42 PM CDT): Well controlled on current therapy and will check a lipid panel and LFTs in 6 months. Assessment & Plan (11/22/2019 11:36 AM CDT): Not as well controlled and would focus on diet exercise and increase her atorvastatin to 80 mg daily. Check lipids and LFTs in 3 months and call back for results. Assessment & Plan (12/05/2018 12:04 AM CDT): Well controlled on current therapy and will check a lipid panel and LFTs in 6 months. Assessment & Plan (12/11/2017 8:55 PM CDT): LDL Well controlled on current therapy and will check a lipid panel and LFTs in 6 months. Add fish oil for elevated triglycerides. Assessment & Plan (11/09/2016 8:55 AM CDT): Okay control on her half tablet of Lipitor and I have asked her to improve diet exercise and weight loss. Gastroesophageal reflux disease 09/08/2013 Overview (11/11/2017): Failed ranitidine Assessment & Plan (01/01/2022 9:43 AM CDT): Well controlled on omeprazole. Assessment & Plan (12/05/2018 12:04 AM CDT): Continue current PPI and the patient is aware of the long-term risks posed by chronic PPI usage. Magnesium level will be checked periodically. Calcium supplementation recommended. Assessment & Plan (12/11/2017 8:54 PM CDT): Continue current PPI and the patient is aware of the long-term risks posed by chronic PPI usage. Magnesium level will be checked periodically. Calcium supplementation recommended. Assessment & Plan (11/09/2016 8:55 AM CDT): Continue current PPI and the patient is aware of the long-term risks posed by chronic PPI usage. Magnesium level will be checked periodically. Calcium supplementation recommended. Major depressive disorder 09/08/2013 Overview (07/29/2016): DEPRESSIVE DISORDER NEC Assessment & Plan (11/22/2019 11:35 AM CDT): Well controlled without medication Assessment & Plan (12/05/2018 12:04 AM CDT): Well controlled without medication. Assessment & Plan (11/09/2016 8:55 AM CDT): Stable without medication. Osteoporosis 09/08/2013 Overview (11/22/2019): Managed by hot metal mixer operator helpervaughn approx 2016, switched to prolia winter 2018 Assessment & Plan (02/13/2023 10:48 PM CDT): Calcium, vitamin-D, weight-bearing exercise and follow-up with bone health for further treatment considering bilateral atypical femur fractures following remote treatment with Boniva and more recently with Prolia Assessment & Plan (01/03/2023 6:08 PM CDT): Calcium, vitamin-D, weight-bearing exercise. Patient aware of the potential risk for atypical femur fractures with Prolia. Status post IM nail for bilateral femurs. Recommended discussing with orthopedist and bone health. Assessment & Plan (01/01/2022 9:41 AM CDT): Calcium, vitamin-D, weight-bearing exercise, Prolia and follow-up the jordan worker for management. Assessment & Plan (11/27/2020 1:43 PM CDT): Continue calcium, vitamin-D, weight-bearing exercise, Prolia and follow-up with her jordan worker for bone density scanning as they direct. Assessment & Plan (11/22/2019 11:35 AM CDT): Continue calcium, vitamin-D, weight-bearing exercise, Prolia and follow-up with the jordan worker repeat bone density scanning as they direct. Assessment & Plan (12/05/2018 12:04 AM CDT): Calcium, vitamin-D, weight-bearing exercise, been even follow-up with the jordan worker as they direct. Assessment & Plan (12/11/2017 8:54 PM CDT): Continue calcium, vitamin-D, weight-bearing exercise and Boniva which is managed by her jordan worker. Assessment & Plan (11/09/2016 8:56 AM CDT): Continue calcium, weight-bearing exercise, vitamin-D supplementation, ibandronate as directed by her jordan worker and follow up with her for bone density scans as she directs. Varicose veins of lower extremity 10/23/2012 Overview (07/29/2016): Varicose vein of leg Thyroid nodule 11/04/2011 Overview (11/11/2017): Left partial thyroidectomy 2002 (benign adenoma). R thyroid nodule followed by US, Dr Fowler. Assessment & Plan (07/11/2024 10:49 AM CDT): Lab Results Component Value Date TSH 1.41 12/01/2023 Euthyroid as above Continue current regimen Will have thyroid US for the fall Follows with endo Assessment & Plan (01/05/2024 11:18 AM CDT): Lab Results Component Value Date TSH 1.41 12/01/2023 Euthyroid as above Continue current regimen Assessment & Plan (08/02/2023 11:09 AM CDT): Lab Results Component Value Date TSH 1.56 12/02/2022 Euthyroid as above Continue current regimen Assessment & Plan (07/04/2023 10:22 AM CDT): Ultrasound due December 2023. Follow up with her web feeder for management as they direct. Assessment & Plan (11/22/2019 11:35 AM CDT): Follow-up with her web feeder for ultrasounds and biopsies as they direct. Assessment & Plan (12/05/2018 12:03 AM CDT): Follow-up with her adoption social worker for repeat ultrasounds and biopsies as they direct. Assessment & Plan (12/11/2017 8:54 PM CDT): Follow-up with her web feeder as they direct. Assessment & Plan (11/09/2016 8:55 AM CDT): Follow-up with her web feeder as they direct. Nontoxic single thyroid nodule 05/03/2011 Resolved Problems Problem Noted Date Diagnosed Date Resolved Date Type 2 diabetes mellitus wit hout complication, without long-term current use of insulin 08/02/2023 08/03/2024 Assessment & Plan (07/11/2024 10:52 AM CDT): Lab Results Component Value Date HGBA1C 6.1 01/05/2024 HGBA1C 6.5 (H) 06/08/2023 HGBA1C 6.3 (H) 12/02/2022 Lab Results Component Value Date LDLCALC 115 01/10/2024 CREATININE 0.78 01/10/2024 C/w metformin 500 mg xr every day Pt wants to hold off for now, try another 6 months without medication Continue losartan 50 mg every day for renal protection Recheck A1c now Assessment & Plan (01/05/2024 11:18 AM CDT): Lab Results Component Value Date HGBA1C 6.1 01/05/2024 HGBA1C 6.5 (H) 06/08/2023 HGBA1C 6.3 (H) 12/02/2022 Lab Results Component Value Date LDLCALC 105 12/02/2022 CREATININE 0.80 07/20/2023 C/w metformin 500 mg xr every day Pt wants to hold off for now, try another 6 months without medication Continue losartan 50 mg every day for renal protection Assessment & Plan (08/02/2023 11:08 AM CDT): Lab Results Component Value Date HGBA1C 6.5 (H) 06/08/2023 HGBA1C 6.3 (H) 12/02/2022 HGBA1C 6.1 (H) 12/15/2021 Lab Results Component Value Date LDLCALC 105 12/02/2022 CREATININE 0.80 07/20/2023 New problem Recommend starting metformin 500 mg xr every day Pt wants to hold off for now, try another 6 months without medication Continue losartan 50 mg every day for renal protection Femur fracture, right 09/04/20222024 Assessment & Plan (08/02/2023 11:00 AM CDT): Following with dr. Philip Had xrays done of her bones and was told everything healing well Was told to stop prolia Closed displaced spiral frac ture of shaft of right femur 09/03/2022 07/11/2024 Left knee pain 06/26/2021 08/03/2024 Assessment & Plan (06/26/2021 2:18 PM SHEEP OR CALF GRADER): Initially thought due to hamstring tendinitis which has improved with physical therapy but now showing signs of osteoarthritis. Orthopedic referral as requested. Chronic cough 11/22/2019 08/02/2023 Assessment & Plan (07/04/2023 10:19 AM CDT): Restart Anoro and new prescription sent to her pharmacy. Assessment & Plan (01/03/2023 6:06 PM CDT): Stable on Anoro and use albuterol as needed. Assessment & Plan (06/26/2021 2:17 PM SHEEP OR CALF GRADER): Stable with Anoro. Pulmonary referral if needed. Assessment & Plan (11/27/2020 1:43 PM CDT): Improved with Anoro. Will refer to Pulmonary once established here in our office. Assessment & Plan (11/22/2019 11:37 AM CDT): Would like to do a pulmonary function test but patient declines due to fears of COVID-19 and coming up to the hospital. Start Anoro for possibility of underlying COPD given secondhand smoke exposure. Continue albuterol p.r.n. Consider silent acid reflux contributing. Check pulmonary function testing down the road. Chest x-ray if worsens. Healthcare maintenance 12/05/201801/01 Assessment & Plan (12/05/2018 12:05 AM CDT): We discussed a comprehensive list of medical conditions and proposed recommendations for each. We discussed the importance of increased exercise, fall prevention, proper nutrition, and suggested joining [facility] to accomplish most of these goals. Patient was given an age appropriate Medicare preventive services checklist. Please see the EMR regarding details of their health risk assessment and preventive services checklist. Will see her back in 1 year with lab sooner if needed. At low risk for fall 12/05/2018 022 Assessment & Plan (11/27/2020 1:43 PM CDT): Timed get up and go test normal. Assessment & Plan (11/22/2019 11:36 AM CDT): Timed get up and go test normal. Assessment & Plan (12/05/2018 12:05 AM CDT): Timed get up and go test normal. 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 I did educate patient that if in the event this is more of a stress fracture off takes week or 2 for often to show up callused. However I did encourage her to continue with management which would be advised regardless with compression, ice, and anti-inflammatories as needed will touch base tomorrow regarding results of imaging and certainly next week pain is persisting or there is little improvement with management recommended Healthcare maintenance 11/09/201607/11 Assessment & Plan (01/03/2023 6:07 PM CDT): Flu shot each January. Tetanus booster every 10 years. Shingrix completed. New COVID booster and RSV vaccine when available. Colonoscopy due no later than November 2026. Mammogram yearly. Will see her back in 1 year for physical fasting lab sooner if needed. Assessment & Plan (01/01/2022 9:44 AM CDT): Flu shot each January. Tetanus booster every 10 years. Shingrix completed. COVID booster this winter. Bone density scan with her jordan worker. Colonoscopy due no later than November 2026. Mammogram scheduled. Will see her back in 1 year for physical fasting lab sooner if needed Assessment & Plan (12/11/2017 8:55 PM CDT): Flu shot each January. Tetanus booster every 10 years. Shingrix recommended. Bone density scan every 2 years. Colonoscopy due September 2021. Mammogram yearly. Will see her back in 1 year for physical sooner if needed. Assessment & Plan (11/09/2016 8:54 AM CDT): Flu shot each January. Tetanus booster every 10 years. Follow up with her jordan worker for breast exam, mammogram, bone density scanning, Pap smears as she directs. Colonoscopy due September 2017. Prevnar at age 63 followed by Pneumovax 1 year later. Follow-up in 1 year for another wellness visit with fasting lab sooner if needed. Impaired fasting glucose 09/08/201312/2023 Overview (07/30/2016): IMPAIRED FASTING GLUCOSE Assessment & Plan (07/04/2023 10:19 AM CDT): Impending diagnosis of diabetes discussed without increase exercise, low sugar/carb diet and weight loss. Check A1c and fasting blood sugar down the road. Assessment & Plan (01/03/2023 6:07 PM CDT): Patient should reduce sugar and carbs, increase exercise, maintain proper body weight, and will check an A1c once or twice yearly. Assessment & Plan (01/01/2022 9:41 AM CDT): Patient should reduce sugar and carbs, increase exercise, maintain proper body weight, and will check an A1c once or twice yearly. Assessment & Plan (06/26/2021 2:17 PM SHEEP OR CALF GRADER): Patient should reduce sugar and carbs, increase exercise, maintain proper body weight, and will check an A1c once or twice yearly. Assessment & Plan (11/27/2020 1:44 PM CDT): Proximity of diabetes discussed at length. Avoid sugars and carbs increase exercise and lose weight. Check A1c before next visit. Assessment & Plan (11/22/2019 11:35 AM CDT): Patient should reduce sugar and carbs, increase exercise, maintain proper body weight, and will check an A1c once or twice yearly. Assessment & Plan (12/05/2018 12:04 AM CDT): Patient should reduce sugar and carbs, increase exercise, maintain proper body weight, and will check an A1c once or twice yearly. Assessment & Plan (12/11/2017 8:54 PM CDT): Patient should reduce sugar and carbs, increase exercise, maintain proper body weight, and will check an A1c once or twice yearly. Assessment & Plan (11/09/2016 8:56 AM CDT): Patient should reduce sugar and carbs, increase exercise, maintain proper body weight, and will check an A1c once or twice yearly. Chronic rhinitis 09/08/2013 08/02/2023 Overview (07/30/2016): CHRONIC RHINITIS Assessment & Plan (12/05/2018 12:04 AM CDT): Well controlled on Zyrtec and Flonase. Assessment & Plan (12/11/2017 8:56 PM CDT): Add Flonase to her Zyrtec. Baldness 04/28/2009 09/26/2017 Hyperthyroidism 04/28/2009 11/11/2017 Immunizations Immunization Administration Dates Next Due COVID-19 mRNA (Picsean) 0.3 m L (30 mcg) vaccine (12 years and up) 08/22/2023 Influenza, Quadrivalent, Hig h Dose, Preservative Free, Intrr 01/19/2023,11/23/2022(Deferred: Patient Refused),02/11/2022,02/01/2020 Influenza, Quadrivalent, Spl it, Intramuscular 01/31/2019,01/23/2015 Influenza, Quadrivalent, Spl it, Preservative Free, Intramuscular 02/14/2018 Influenza, Split 01/29/2010 Influenza, Trivalent, High D ose, Split, Preservative Free, Intramuscular 01/09/2024,01/19/2023,01/03/2023(Defer red: Patient Refused) Influenza, Trivalent, IM (MDV) 4,01/23/2013,01/23/2013,01/23,02/09/2011,02/03/2011,02/19/2009 ,02/06/2008 Influenza, Unspecified 01/09/2024,2023(Deferred: Patient Refused),01/01/2022(Deferred: Patient Refused),01/19/2021,11/27/2020(Deferre d: Patient Refused),01/31/2019,01/26/2016 Pfizer SARS-CoV-2 Monovalent Vaccination (12+ Yrs) PURPLE 01/19/2021,07/17/2020,06/19/2020 Pfizer Sars-Cov-2 Bivalent V accination (12+ YRS) 01/19/2023,01/25/2022 Pneumococcal Conjugate PCV 13 11/16/2018 Pneumococcal Polysaccharide PPV23 11/22/2019 RSV Vaccine, Pref, Recombina nt, Subunit, Adjuvanted, PF, IM (Arexvy) 01/04/2023 TD Preservative Free 10/07/2014 Tdap 11/05/2008 ZOSTER LIVE 10/23/2010 ZOSTER Recombinant 12/14/2017,08/14/2017 Social History Tobacco Use Types Packs/Day Years Used Date Smoking Tobacco: Never Smokeless Tobacco: Never Tobacco Cessation:Counseling Given: Not Answered Alcohol Use Standard Drinks/Week Comments Yes 0 (1 standard drink = 0.6 oz pur e alcohol) [employer] Answer Date Recorded In the past 12 months has [employer], [employer], or [employer] threatened to shut off services in your home? No 08/01/2024 Social Connection and Isolat ion Panel [NHANES] Answer Date Recorded In a typical week, how many times do you talk on the phone with family, friends, or neighbors? More than three times a week 08/01/2024 How often do you get togethe r with friends or relatives? Once a week 08/01/2024 How often do you attend [facility] or mosque services? Never 08/01/2024 Do you belong to any clubs o r organizations such as uatsdin groups, unions, fraternal or athletic groups, or school groups? No 08/01/2024 How often do you attend meet ings of the clubs or organizations you belong to? Never 08/01/2024 Are you , , di vorced, , never , or living with a partner? 08/01/2024 AUDIT-C Answer Date Recorded Q1: How often do you have a drink containing alc ohol? 2-3 times a week 12/13/2023 Q2: How many drinks containi ng alcohol do you have on a typical day when you are drinking? 1 or 2 12/13/2023 Q3: How often do you have si x or more drinks on one occasion? Never 12/13/2023 Overall Financial Resource Strain (CARDIA) Answe r Date Recorded How hard is it for you to pa y for the very basics like food, housing, medical care, and heating? Not hard at all 08/01/2024 PHQ-2 Answer Date Recorded PHQ-2 Total Score (If total score is 3 or more points, staff should administer the PHQ-9) 0 08/09/2024 Hunger Vital Sign Answer Date Recorded Within the past 12 months, y ou worried that your food would run out before you got the money to buy more. Never true 08/02/19 25 Within the past 12 months, t he food you bought just didn't last and you didn't have money to get more. Never true 08/01/2024 PRAPARE - Transportation Answer Date Re corded In the past 12 months, has l ack of transportation kept you from medical appointments or from getting medications? No 12/2024 In the past 12 months, has l ack of transportation kept you from meetings, work, or from getting things needed for daily living? No 08/01/2024 Housing Stability Vital Sign Answer Carlos e Recorded In the last 12 months, was t here a time when you were not able to pay the mortgage or rent on time? No 08/01/2024 In the past 12 months, how m any times have you moved where you were living? 0 08/01/2024 At any time in the past 12 m [facility], were you homeless or living in a [place] [facility] [place] facility (including now)? No 08/01/2024 Personal Safety Answer Date Recorded Have you ever been in or are you currently in a harmful physical or emotional relationship or is someone making you feel afraid or unsafe? 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 Gender Identity Not on file Sexual Orientation Straight 08/28/2018 1: 45 PM CDT Last Filed Vital Signs Vital Sign Reading Time Taken Comments Blood Pressure 128/76 08/09/2024 7:20 AM CDT Pulse 70 08/09/2024 7:20 AM CDT Temperature 36.2 C (97.1 F) 08/02/2024 10:45 AM CDT Respiratory Rate 16 08/09/2024 7:20 AM CDT Oxygen Saturation 98% 08/09/2024 7:20 AM CDT Inhaled Oxygen Concentration - - Weight 83.6 kg (184 lb 3.2 oz) 10/05/2024 10:21 AM CDT Height 157.7 cm (5' 2.1) 10/05/2024 10:21 AM CD T Body Mass Index 33.58 10/05/2024 10:21 AM CDT Plan of Treatment Not on file Medical Devices Implanted Type Area Shirt Closer Device Identifier Shelf Expiration Date Model / Serial / Lot Synthes Screw Locking Im Nail 5mm 48mm 04.045.048 - [id number] Implanted:Qty: 2 on 09/06/2022 by Ani Hernandez MD at [facility] Screw Left: Femur Synthes I 04.045.04 8 / / Synthes Screw Bone Locking Cannulated Hip Threaded 6.5x80mm Recon 04.046.680s - [id number] Implanted:Qty: 1 on 09/06/2022 by Ani Hernandez MD at [facility] Screw Left: Femur Synthes I 04.046.68 0S / / Synthes Screw Bone Locking Cannulated Femoral Proximal Full Thread Light Green 5.0x36mm Titanium 04.045.036 - [id number] Implanted:Qty: 1 on 09/06/2022 by Ani Hernandez MD at [facility] Screw Left: Femur Synthes I 04.045.03 6 / / Synthes Nail 140d 400mm 11mm Intramedullary Femoral Greater Trochanter Right Titanium Niobium Aluminum Adult 8 Hole Cannulated Reconstruction Light Green 5/6.5mm Screw 04.033.170s - S04.033.170s - [id number] Implanted:Qty: 1 on 09/04/2022 by Jovan Duenas MD at [facility] Right: Femur Synthes I 03/24/2031 04.033.17 0S / 04.033.17 0S / Synthes Screw Bone Locking Cannulated Hip Threaded 6.5x75mm Recon 04.046.675s - S04.046.675s - [id number] Implanted:Qty: 1 on 09/04/2022 by Jovan Duenas MD at [facility] Right: Femur Synthes I 04.046.67 5S / 04.046.67 5S / Synthes Screw Bone Locking Cannulated Hip Threaded 6.5x85mm Recon 04.046.685s - S04.046.685s - [id number] Implanted:Qty: 1 on 09/04/2022 by Jovan Duenas MD at [facility] Right: Femur Synthes I 04.046.68 5S / 04.046.68 5S / Synthes Screw Bone Locking Cannulated Femoral Proximal Full Thread Light Green 5.0x42mm Titanium 04.045.042 - S04.045.042 - [id number] Implanted:Qty: 1 on 09/04/2022 by Jovan Duenas MD at [facility] Right: Femur Synthes I 04.045.04 2 / 04.045.04 2 / Synthes Screw Locking Im Nail 5mm 48mm 04.045.048 - S04.045.048 - [id number] Implanted:Qty: 1 on 09/04/2022 by Jovan Duenas MD at [facility] Right: Femur Synthes I 04.045.04 8 / 04.045.04 8 / Synthes Nail Intramedullary Titanium Niobium Aluminum Adult 135 D L400 Mm Od10 Mm Femoral Piriformis Fossa Left 8 Hole Cannulated Reconstruction Light Green 5/6.5 Mm Screw 04.033.041s - [id number] Implanted:Qty: 1 on 09/06/2022 by Nguyen Greer MD at [facility] Left: Femur Synthes I [id number] 02/23/2032 04.033.04 1S / / [id number] Explanted Type Area Shirt Closer Device Identifier Shelf Expiration Date Model / Serial / Lot Synthes Reamer Knee Intramedullary Canal Procedure [id number] Stainless Steel .010s - S03.010s - [id number] Explanted:Qty: 1 on 09/04/2022 by Jovan Duenas MD at [facility] Right: Femur Synthes I 01/23/2032.233.010 S / 233.010 S / Procedures Procedure Name Priority Date/Time Associated Diagnosis Comments DEXA TBS AXIAL SKELETON BONE DENSITY 1 OR MORE SITES Schedule Routine, Read Routine (OP Routine) 10/05/2024 10:15 AM CDT Osteoporosis, unspecified osteoporosis type, unspecified pathological fracture presence EGFR Routine 08/02/2024 3:57 AM CDT POCT HEMOGLOBIN A1C Routine 07/11/2024 10:58 AM CDT Type 2 diabetes mellitus without complication, without long-term current use of insulin (HCC) DIABETIC EYE EXAM Routine 07/10/2024 HEPATITIS C ANTIBODY Routine 01/10/2024 8:12 AM CDT Need for hepatitis B screening test LIPID PANEL Routine 01/10/2024 8:12 AM CDT Hyperlipidemia, unspecified hyperlipidemia type ALBUMIN CREATININE RATIO, URINE Routine 01/05/2024 11:06 AM CDT Type 2 diabetes mellitus without complication, without long-term current use of insulin (HCC) SCREENING MAMMOGRAM BILATERAL W BILL Schedule Routine, Read Routine (OP Routine) 12/28/2023 2:10 PM CDT Screening mammogram, encounter for COLONOSCOPY 12/08/2021 7:16 AM CDT from Last 3 Months or Most Recently Relevant to Health Maintenance Results * Dexa TBS Axial Skeleton Bone Density 1 or more sites (10/05/2024 10:15 AM CDT) Anatomical Region Laterality Modality Wrist, Body N/A Radiographic Ailna ging Narrative 10/06/2024 11:54 AM CDT Patient Name: Marianne Garcia Date of : 1955 Date of scan: 10/05/2024 Bone mineral density was performed on a [employer] Discovery Densitometer. Based on machine cross-calibration and precision studies the least significant changes of this densitometer is 0.024 g/cm2 at the spine, 0.020 g/cm2 at the total proximal femur, and 0.014g/cm2 at the forearm. HISTORY: This is a 69 y.o. postmenopausal female with a history of low bone mass and vitamin D deficiency. She reports that she has never smoked. She has never used smokeless tobacco. Currently on treatment with calcium and vitamin D, previously treated with ibandronate (Boniva), zoledronic acid (Reclast), denosumab (Prolia), and diuretics, and current complaint of back pain and leg pain. INDICATIONS: Menopause status, vitamin D deficiency, and history of low bone mass. FINDINGS: BONE MINERAL DENSITY OF THE LUMBAR SPINE Bone Mineral Density (BMD) of the lumbar spine was measured from L1-L4 and the average density was calculated to be 0.793 gm/cm2. This corresponds to a T-score (standard deviations from the mean of young adults) of -2.3. When compared to the previous study of 07/20/2023 there has been a -0.043 gm/cm (-5.2%) decrease in bone density that is considered significant. BONE MINERAL DENSITY OF THE FOREARM Bone Mineral density (BMD) of the left proximal 1/3 of the radius measures 0.565 gm/cm2. This corresponds to a T-score (standard deviations from the mean of young adults) of -2.1. When compared to the previous study of 07/20/2023 there has been a 0.037 gm/cm (7.0%) increase in bone density that is considered significant. A forearm bone density study was performed instead of a proximal femur study due to bilateral femur fractures with hardware.. SUMMARY: Bone mineral density shows evidence of low bone mass at the lumbar spine and proximal femur and moderately increased fracture risk (Osteopenia). There is a significant decrease noted in the spine and a significant increase noted in the forearm since the previous exam. The lumbar spine Trabecular Bone Score is 1.192 which suggests degraded bone microarchitecture compared to the general population. Final decisions regarding diagnostic or therapeutic recommendations should include BMD, TBS, additional clinical risk factors as well the clinical context of the patient. Please see attached TBS results for further details. ADDITIONAL COMMENTS: Postmenopausal Women and Men Over 50: Diagnostic criteria: Osteoporosis: BMD at or below -2.5 T-score; Osteopenia (low bone mass): BMD between -1.0 and -2.5 T-score. If the patient has a history of a fragility fracture, a fracture that occurred with trauma equivalent to a fall from a standing position or less, then the diagnosis is osteoporosis regardless of bone density. The history and data sections of the bone mineral density scan were prepared by Genoveva Olivia (R)([facility]) who is accredited by the International Society of Clinical Densitometry. The overall patient assessment and scan interpretation were performed by Vicky Philip M.D. who is certified by the International Society of Clinical Densitometry. [id number] Vicky Philip MD IM DXA PROCEDURES Final Resu lt * (ABNORMAL) eGFR (08/02/2024 3:57 AM CDT) eGFR 58(L) >=60 mL/min/1. 73 m2 Comment: Interpretive Data Reference Interval Normal >/= 90 mL/min/1.73m2 Mildly decreased* 60 - 89 mL/min/1.73m2 Mildly to moderately decreased 45 - 59 mL/min/1.73m2 Moderately to severely decreased 30 - 44 mL/min/1.73m2 Severely decreased 15 - 29 mL/min/1.73m2 Kidney Failure < 15 mL/min/1.73m2 *Relative to young adult level Estimated glomerular filtration rate is determined by the 2020 CKD-EPI equation recommended by the National Kidney Foundation (A Unifying Approach to GFR Estimation: Recommendations of the NKF-ASK Task Force on Reassessing the Inclusion of Race in Diagnosing Kidney Disease, JASN 2020). The CKD-EPI equation should not be used for patients with unstable renal function and has not been validated in children and those over 70. Current interpretive data was last reviewed 2021. Blood 08/02/2024 3:57 AM CDT 08/02/2024 4:24 AM CDT Anil Holland MD LAB BLOOD ORDERABLES Final Resu lt [facility] ([facility]) [facility] Department [place] [address] * (ABNORMAL) POCT hemoglobin A1c (07/11/2024 10:58 AM CDT) Hemoglobin A1C, POC 6.2 4.0 - 5.6 % Capillary blood 07/11/2024 1 0:58 AM CDT Iftikhar Harrison MD POINT OF CARE TEST ORDERABLES Fi nal Result * Diabetic Eye Exam (07/10/2024) Generic External Data Provider HEALTH MAINTENANC E Final Result * Hepatitis C antibody Blood (01/10/2024 8:12 AM CDT) Hep C Ab Nonreactive Nonreactive Comment: Interpretive Data Nonreactive: Antibodies to HCV not detected. Does NOT exclude the possibility of recent exposure to HCV. Equivocal: Equivocal for HCV antibodies. Supplemental molecular testing will be automatically performed to determine infection status in accordance with current CDC screening recommendations. Reactive: Positive for HCV antibodies. This may represent current or past HCV infection. Supplemental molecular testing will be automatically performed to determine current infection status in accordance with current CDC screening recommendations. Interpretive data was last revised on 2019. Testing performed by: [facility], [address] [place] [address], [place]., [address] Blood 01/10/2024 8:12 AM CDT 01/10/2024 12:49 PM CDT Iftikhar Harrison MD LAB MICROBIOLOGY - GENERAL ORDER BERNARD Final Result [facility] ([place]) 1 [facility] Department [place] [address] * (ABNORMAL) Lipid panel (01/10/2024 8:12 AM CDT) Cholesterol 194 30 - 199 mg/dL Comment: Interpretive Data Ages < or = 19 years Acceptable: <170 mg/dL Borderline high: 170-199 mg/dL High: >or= 200 mg/dL Ages > or = 20 years Desirable: <200 mg/dL Borderline high: 200-239 mg/dL High: >or= 240 mg/dL Literature References: 1. Expert Panel on Integrated Guidelines for Cardiovascular Health and Risk Reduction in Children and Adolescents. Pediatrics 2011;128:S213 2. NCEP Expert Panel. Circulation 2004;110:227 Current Interpretive Data was last revised on 2017. Testing performed by: [facility], [address] [place] [address]., [id number] Triglycerides 164(H) <=149 mg/dL [facility] ([place]) Comment: Interpretive Data Ages < or = 9 years Acceptable: <75 mg/dL Borderline high: 75-99 mg/dL High: >or= 100 mg/dL Ages 10 to 20 years Acceptable: <90 mg/dL Borderline high: 90-129 mg/dL High: >or= 130 mg/dL Ages > or = 20 years Desirable: <150 mg/dL Borderline high: 150-199 mg/dL High: 200-499 mg/dL Very high: >or= 499 mg/dL Literature References: 1. Expert Panel on Integrated Guidelines for Cardiovascular Health and Risk Reduction in Children and Adolescents. Pediatrics 2011;128:S213 2. NCEP Expert Panel. Circulation 2004;110:227 Current Interpretive Data was last revised on 2017. Testing performed by: [facility], [address] [place] [address]., [id number] HDL 50 >=40 mg/dL [facility] ([place]) Comment: Interpretive Data Ages < or = 19 years Acceptable: >45 mg/dL Borderline low: 40-45 mg/dL Low: <40 mg/dL Ages > or = 20 years Desirable: >or= 60 mg/dL Low: <40 mg/dL Literature References: 1. Expert Panel on Integrated Guidelines for Cardiovascular Health and Risk Reduction in Children and Adolescents. Pediatrics 2011;128:S213 2. NCEP Expert Panel. Circulation 2004;110:227 Current Interpretive Data was last revised on 2017. Testing performed by: [facility], [address] [place] [address]., [id number] LDL, calculated 115 <=129 mg/dL [facility] ([place]) Comment: Interpretive Data Ages < or = 19 years Acceptable: <110 mg/dL Borderline high: 110-129 mg/dL High: >or= 130 mg/dL Ages > or = 20 years Optimal: <100 mg/dL Near optimal: 100-129 mg/dL Borderline high: 130-159 mg/dL High: >160 mg/dL Calculated using the Andry LDL-C estimating equation. This equation was implemented on 2023. Prior to this date LDL-C was estimated using the Friedewald equation. Literature References: 1. Expert Panel on Integrated Guidelines for Cardiovascular Health and Risk Reduction in Children and Adolescents. Pediatrics 2011;128:S213 2. NCEP Expert Panel. Circulation 2004;110:227 3. Andry Farr et al. DEBI Cardiol. 2020 August 23;5(5):540-548. doi: 10.1001/jamacardio.2020.0013 Current Interpretive Data was last revised on 2023. Testing performed by: [facility], [address] [place] [address]., [id number] Non-HDL Cholesterol 144 mg/dL [facility] ([place]) Comment: Interpretive Data Ages < or = 19 years Acceptable: <120 mg/dL Borderline high: 120-144 mg/dL High: >145 mg/dL Ages > or = 20 years When triglycerides are >200 mg/dL, Non-HDL cholesterol is a secondary target of therapy with treatment goals that are 30 mg/dL greater than the LDL cholesterol target. Literature References: 1. Expert Panel on Integrated Guidelines for Cardiovascular Health and Risk Reduction in Children and Adolescents. Pediatrics 2011;128:S213 2. NCEP Expert Panel. Circulation 2004;110:227 Current Interpretive Data was last revised on 2017. Testing performed by: [facility], [address] [place] [address]., [id number] Chol/HDL ratio 4 [facility]ONG ([place]IWO) Comment:Testing performed by : [facility], [id number] [place] [address]., [id number] Blood 01/10/2024 8:12 AM CDT 01/10/2024 12:49 PM CDT Iftikhar Harrison MD LAB BLOOD ORDERABLES Final Resul t Performing Organization Address City[facility] Co de Phone Number [facility] BALJEET (CLARE) [address] [place] [address] Department [place] [address] * Albumin Creatinine Ratio, Urine (01/05/2024 11:06 AM CDT) Albumin Ur <12.0 mg/L Comment: Interpretive Data No reference range established. Current interpretive data was last revised 2018. Creatinine Ur 150.5 mg/dL JESUS Comment: Interpretive Data No reference range established. Current interpretive data was last revised 2018. Albumin Creatinine Ratio, Ur <8 1 - 29 mg/g EJSUS Urine 01/05/2024 11:0 6 AM CDT 01/05/2024 8:52 PM CDT Iftikhar Harrison MD LAB URINE ORDERABLES Final Resul t Performing Organization Address [facility] Co de Phone Number JESUS [address] Department of Laboratories [place], [place] [id number] * Screening Mammogram Bilateral W Bill (12/28/2023 2:10 PM CDT) Anatomical Region Laterality Modality Breast Bilateral Mammography 01/02/2024 4:01 PM CDT Impressions 01/02/2024 4:01 PM CDT There is no mammographic evidence of malignancy. A 1 year screening mammogram is recommended. BI-RADS: 1 - Negative. The patient has been or will be contacted. The patient will be entered into a reminder system with a target due date of 1 year for her next mammogram. Electronically signed by: Milad Tamayo M.D. Narrative 01/02/2024 4:01 PM CDT EXAMINATION: SCREENING MAMMOGRAM BILATERAL W BILL ORDERING HEALTHCARE PROVIDER: SELF SCREENING MAMMOGRAM HISTORY: Routine screening mammography. COMPARISON: Prior mammograms from [facility] dated 03/24/2023, 01/21/2022, 01/08/2021, and 12/19/2019. TECHNIQUE: CC and MLO views of the bilateral breasts were obtained with digital technique using breast tomosynthesis with C view. Computer aided detection was utilized. FINDINGS: DENSITY: There are scattered fibroglandular elements in the bilateral breasts. BREASTS: There is no new suspicious finding in either breast on mammogram. us Self Screening Mammogram IMG MAMMO PROCEDURES Fi nal Result * COLONOSCOPY (12/08/2021 7:16 AM CDT) Anatomical Region Laterality Modality Other Narrative Procedure Note Lilliam Loya MD - 12/08/2021 7:16 AM CDT [facility] Patient Name: Marianne Garcia Procedure Date: 12/08/2021 7:16 AM Date of : 1955 Admit Type: Outpatient Age: 66 Gender: Female Attending MD: Lilliam Loya M.D. Room: [facility] ROOM 1 Note Status: Finalized Patient Profile: This is a 66 year old female. History of polyps. No family history of colon cancer. Procedure: Colonoscopy Indications: High risk colon cancer surveillance: Personalhistory of colonic polyps, Last colonoscopy: February2017 Referring MD: Juan Li M.D. Providers: Lilliam Loya M.D. Impression: - Two 8 to 14 mm polyps at the hepatic flexure, removed with a hot snare. Resected and retrieved. - Diverticulosis in the sigmoid colon. - Internal and external hemorrhoids. Recommendation: - Await pathology results. - Repeat colonoscopy in 3 - 5 years for screening purposes. - Continue present medications. Medicines: Monitored Anesthesia Care Complications: No immediate complications. Estimated Blood Loss: Estimated blood loss: none. Procedure: Pre-Anesthesia Assessment: - Prior to the procedure, a History and Physicalwas performed, and patient medications and allergieswere reviewed. The patient's tolerance of previous anesthesia was also reviewed. The risks andbenefits of the procedure and the sedation options and risks were discussed with the patient. All questions were answered, and informed consent was obtained. Prior Anticoagulants: The patient has taken noanticoagulant or antiplatelet agents. ASA Grade Assessment: II -A patient with mild systemic disease. After reviewing the risks and benefits, the patient was deemed in satisfactory condition to undergo the procedure. The benefits, risks and alternatives of theprocedure and sedation were discussed and informed consentwas obtained. All questions were answered. Please referto the signed informed consent document in the medical record. The scope was passed under direct vision.The Pediatric Colonoscope PCF-H190L [id number] was introduced through the anus and advanced to the the cecum, identified by appendiceal orifice andileocecal valve. The bowel preparation used was Miralax via split dose instruction. The bowel preparation usedwas bisacodyl tablets via split dose instruction. The quality of the bowel preparation was good. Bowelprep was administered using a split dose. Findings: Hemorrhoids were found on perianal exam. The cecum appeared normal. Two sessile polyps were found in the hepatic flexure. The polyps were8 to 14 mm in size. These polyps were removed with a hot snare.Resection and retrieval were complete. The descending colon and transverse colon appeared normal. A few small-mouthed diverticula were found in the sigmoid colon. Internal hemorrhoids were found during retroflexion. The hemorrhoids were medium-sized. Electronically signed by Lilliam Loya M.D. Lilliam Loya M.D. 12/08/2021 9:07:07 AM Number of Addenda: 0 Note Initiated On: 12/08/2021 7:16 AM Procedure Code(s): --- Professional --- 65358, Colonoscopy, flexible; with removal of tumor(s), polyp(s), or other lesion(s) by snare technique Diagnosis Code(s): --- Professional --- Z86.010, Personal history of colonic polyps K64.8, Other hemorrhoids D12.3, Benign neoplasm of transverse colon (hepatic flexure orsplenic flexure) K57.30, Diverticulosis of large intestine without perforation orabscess without bleeding CPT copyright 2020 [employer]. All rights reserved. The codes documented in this report are preliminary and upon farm worker reviewmay be revised to meet current compliance requirements. Recognized by the [employer] for promoting quality in endoscopy Lilliam Loya MD ENDOSCOPY PROCEDURES Final Result from Last 3 Months or Most Recently Relevant to Health Maintenance Insurance AETNA MEDICARE AETNA MEDICARE AETNA MEDICARE Advance Directives For more information, please contact: [phone] * Full Code (Latest Code Status on File) Date Activated Date Inactivated Comments 07/31/2024 3:12 PM 08/02/2024 4:27 PM * Full Code Date Activated Date Inactivated Comments 09/06/2022 3:44 PM 09/13/2022 4:46 PM * Full Code Date Activated Date Inactivated Comments 09/04/2022 1:21 PM 09/06/2022 3:44 PM * Full Code Date Activated Date Inactivated Comments 09/04/2022 11:19 AM 09/04/2022 1:21 PM * Full Code Date Activated Date Inactivated Comments 12/08/2021 7:23 AM 12/08/2021 1:42 PM Care Teams Photonics Engineering Technologist Relationship Specialty Start Date End Date Iftikhar Harrison MD [address] [place] [address] [address] [place] [id number] PCP - General Family Medicine 08/02/23
--- OUTSIDE RECORDS SUMMARY | 2024-11-03 08:36 | XMS_ITS | Clinical Summary ---
Author Organization [facility] Address [address] [address] Phone Care Team Providers Care National Sales Representative Name Role Phone Juan Li MD Primary Care Provider [phone] Allergies Active Allergy Reactions Criticality Noted Date Comments Nitrofurantoin Macrocrystal Swelling 11/19/19 16 Penicillins Swelling 11/19/2015 Sulfa Antibiotics Swelling 11/19/2015 Medications PROAIR HFA 108 (90 BASE) MCG/ACT Aerosol Solution INHALE 2 PUFFS PO Q 4 TO 6 H PRN 1 11/04/2015 Active ergocalciferol (VITAMIN D) 56610 UNIT Capsule TK 1 C PO THREE TIMES A MONTH 1 09/23/2015 Active furosemide (LASIX) 20 MG Tablet 2 10/15/2015 Active raNITIdine (ZANTAC) 150 MG Tablet TK 1 T PO BID 11 11/04/2015 Active telmisartan (MICARDIS) 20 MG Tablet 2 10/15/2015 Active omeprazole (PRILOSEC) 40 MG CAPSULE DELAYED RELEASE Take 40 mg by mouth daily. Active atorvastatin (LIPITOR) 40 MG Tablet Take 40 mg by mouth daily. Active Cetirizine HCl (ZYRTEC PO) Take by mouth. Active Family History Medical History Relation Name Comments Congestive Heart Failure Mother Relation Name Status Comments Father Mother Social History Tobacco Use Types Packs/Day Years Used Date Smoking Tobacco: Never Alcohol Use Standard Drinks/Week Comments Yes 0 (1 standard drink = 0.6 oz pur e alcohol) social Comments No Sex and Gender Information Value Date Recorded Sex Assigned at Not on file Legal Sex Female 12:29 AM CDT Gender Identity Not on file Sexual Orientation Not on file Last Filed Vital Signs Vital Sign Reading Time Taken Comments Blood Pressure - - Pulse - - Temperature - - Respiratory Rate - - Oxygen Saturation - - Inhaled Oxygen Concentration - - Weight 74.5 kg (164 lb 3.2 oz) 11/19/2015 8:43 A M CDT Height 157.5 cm (5' 2) 11/19/2015 8:43 AM CDT Body Mass Index 30.03 11/19/2015 8:43 AM CDT Plan of Treatment Health Maintenance Due Date Last Done Comments Hepatitis C Virus (HCV) Screening 1955 TdaP Immunization 1955 Cologuard 1998 Colonoscopy 1998 Colorectal Cancer Screening 1998 Immunochemical Fecal Occult Blood 1998 Pneumococcal Immunization (5 0+ years) (1 of 1 - PCV) 09/11/2003 Zoster Immunization (1 of 2) 09/11/2003 SARS-COV-2 Immunization (1 - 2023- season) 2023 Influenza Immunization (#1) 2024 Respiratory Syncytial Virus (RSV) Immunization (Adult) (1 - 1-dose 75+ series) 2028 Hepatitis B Immunization Aged Out No longer eligible based on patient's age to complete this topic Human Papillomavirus (HPV) Immunization Aged Out No longer eligible b ased on patient's age to complete this topic Meningococcal Immunization (ACWY) Aged Out No longer eligible based on patient's age to complete this topic Rotavirus Immunization Aged Out No lo nger eligible based on patient's age to complete this topic Insurance * Guarantor: Marianne Garcia Account Type Relation to Patient Date of Phone Billing Address Personal/Family Self 1955 [address] [place], [place] [id number] [place] [address] Care Teams National Sales Representative Relationship Specialty Start Date End Date Juan Li MD PCP - General Internal Medicine 11/19/15
--- OUTSIDE RECORDS SUMMARY | 2024-11-03 08:36 | XMS_ITS | Encounter Summary ---
Author Organization [facility] Address [address] [place] [address] Phone Care Team Providers Care Toy Maker Name Role Phone Juan Li MD Primary Care Provider [phone] Juan Li MD Primary Care Provider [phone] Iftikhar Harrison MD Primary Care Provider [phone] Encounter Details Date Type Department Care Team (Late st Contact Info) Description 10/17/2006 Orders Only [facility] Scanning, Provider Social History Tobacco Use Types Packs/Day Years Used Date Smoking Tobacco: Never Assessed Comments Unknown Sex and Gender Information Value Date Recorded Sex Assigned at Not on file Legal Sex Female 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 BIOLOGICAL Gender Identity Not on file Sexual Orientation Straight 08/28/2018 1: 45 PM CDT documented as of this encounter Plan of Treatment Not on file documented as of this encounter Procedures Procedure Name Priority Date/Time Associated Diagnosis Comments SCAN - RADIOLOGY/IMAGING 10/17/2006 documented in this encounter Results * SCAN - RADIOLOGY/IMAGING (10/17/2006) Anatomical Region Laterality Modality Other us Provider [...] documented as of this encounter Care Teams Toy Maker Relationship Specialty Start Date End Date Juan Li MD PCP - General 10/15/13 08/01/23 Juan Li MD PCP - General 11/05/08 10/14/13 Iftikhar Harrison MD [address] [facility] [address] [place] [address] PCP - General Family Medicine 08/02/23 documented as of this encounter
--- OUTSIDE RECORDS SUMMARY | 2024-11-03 08:36 | XMS_ITS | Encounter Summary ---
Author Organization [facility] Address [address] [place] [address] Phone Care Team Providers Care Customer Resource Specialist Name Role Phone Juan Li MD Primary Care Provider [phone] Juan Li MD Primary Care Provider [phone] Iftikhar Harrison MD Primary Care Provider [phone] Encounter Details Date Type Department Care Team (Late st Contact Info) Description 10/09/2004 Orders Only [facility] Scanning, Provider Social History Tobacco Use Types Packs/Day Years Used Date Smoking Tobacco: Never Assessed Comments Unknown Sex and Gender Information Value Date Recorded Sex Assigned at Not on file Legal Sex Female 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 Gender Identity Not on file Sexual Orientation Straight 08/28/2018 1: 45 PM CDT documented as of this encounter Plan of Treatment Not on file documented as of this encounter Procedures Procedure Name Priority Date/Time Associated Diagnosis Comments SCAN - RADIOLOGY/IMAGING 10/09/2004 documented in this encounter Results * SCAN - RADIOLOGY/IMAGING (10/09/2004) Anatomical Region Laterality Modality Other us Provider [...] documented as of this encounter Care Teams Customer Resource Specialist Relationship Specialty Start Date End Date Juan Li MD PCP - General 10/15/13 08/01/23 Juan Li MD PCP - General 11/05/08 10/14/13 Iftikhar Harrison MD [address] [facility] [address] [place] [address] PCP - General Family Medicine 08/02/23 documented as of this encounter
--- OUTSIDE RECORDS SUMMARY | 2024-11-03 08:36 | XMS_ITS | Encounter Summary ---
Author Organization [facility] Address [address] [place] [address] Phone Care Team Providers Care Power Plant Mechanic Name Role Phone Juan Li MD Primary Care Provider [phone] Iftikhar Harrison MD Primary Care Provider [phone] Encounter Details Date Type Department Care Team (Late st Contact Info) Description 03/24/2023 Orders Only [facility] Scanning, Provider Social History Tobacco Use Types Packs/Day Years Used Date Smoking Tobacco: Never Smokeless Tobacco: Never Alcohol Use Standard Drinks/Week Comments Yes 0 (1 standard drink = 0.6 oz pur e alcohol) AUDIT-C Answer Date Recorded Q1: How often do you have a drink containing alc ohol? 2-3 times a week 11/05/2022 Q2: How many drinks containi ng alcohol do you have on a typical day when you are drinking? 1 or 2 11/05/2022 Q3: How often do you have si x or more drinks on one occasion? Never 11/05/2022 PHQ-2 Answer Date Recorded PHQ-2 Total Score (If total score is 3 or more points, staff should administer the PHQ-9) 0 01/03/2023 Personal Safety Answer Date Recorded Have you ever been in or are you currently in a harmful physical or emotional relationship or is someone making you feel afraid or unsafe? Denies 02/06/2023 Comments No Sex and Gender Information Value Date Recorded Sex Assigned at Not on file Legal Sex Female 9:16 AM OPHTHALMIC PATHOLOGIST Gender Identity Not on file Sexual Orientation Straight 08/28/2018 1: 45 PM CDT documented as of this encounter Plan of Treatment Not on file documented as of this encounter Procedures Procedure Name Priority Date/Time Associated Diagnosis Comments SCAN - RADIOLOGY/IMAGING 03/24/2023 documented in this encounter Results * SCAN - RADIOLOGY/IMAGING (03/24/2023) Anatomical Region Laterality Modality Other us Provider Scanning Final Result documented in this encounter Visit Diagnoses Not on filedocumented in this encounter Care Teams Power Plant Mechanic Relationship Specialty Start Date End Date Juan Li MD PCP - General 10/15/13 08/01/23 Iftikhar Harrison MD [address] [place] [address] [address] [place] [id number] PCP - General Family Medicine 08/02/23 documented as of this encounter
--- OUTSIDE RECORDS SUMMARY | 2024-11-03 08:36 | XMS_ITS | Clinical Summary ---
Author Organization [facility] Address [address] [place] [address] Care Team Providers Care Knife Setter Assembler Name Role Phone Iftikhar Harrison MD Primary Care Provider [phone] Allergies Active Allergy Reactions Criticality Noted Date [...] needle, diabetic (Pen Needle) 31 gauge x /16 needle Use as directed once a day [...] (08/20/2021): Added automatically from request for surgery [id number] Hamstring tendonitis 04/20/2021 Assessment & Plan (04/20/2021 12:[address] SUPERVISOR): Rest ice elevation and increase her naproxen [...] recommended. Assessment & Plan (06/26/2021 2:[address] OF [address] SUPERVISOR): Well controlled on the current regimen. Avoidance [...] recommended. Hyperlipidemia associated with type 2 diabetes m ellitus 09/08/2013 Overview (07/28/2016): HYPERLIPIDEMIA NEC/NOS Assessment & [...] months. Assessment & Plan (06/26/2021 2:[address] OF [address] SUPERVISOR): Well controlled on current therapy and will [...] medication. Osteoporosis 09/08/2013 Overview (11/22/2019): Managed by telephonic nurse case managervaughn approx 2016, switched to prolia winter 2018 [...] vitamin-D, weight-bearing exercise, Prolia and follow-up the asbestos worker for management. Assessment & Plan (11/27/2020 1:43 PM CDT): Continue calcium, vitamin-D, weight-bearing exercise, Prolia and follow-up with her asbestos worker for bone density scanning as they direct. Assessment & Plan (11/22/2019 11:35 AM CDT): Continue calcium, vitamin-D, weight-bearing exercise, Prolia and follow-up with the asbestos worker repeat bone density scanning as they direct. Assessment & Plan (12/05/2018 12:04 AM CDT): Calcium, vitamin-D, weight-bearing exercise, been even follow-up with the asbestos worker as they direct. Assessment & Plan (12/11/2017 8:54 PM CDT): Continue calcium, vitamin-D, weight-bearing exercise and Boniva which is managed by her asbestos worker. Assessment & Plan (11/09/2016 8:56 AM CDT): Continue calcium, weight-bearing exercise, vitamin-D supplementation, ibandronate as directed by her asbestos worker and follow up with her for [...] due December 2023. Follow up with her student counselor for management as they direct. Assessment & Plan (11/22/2019 11:35 AM CDT): Follow-up with her student counselor for ultrasounds and biopsies as they direct. Assessment & Plan (12/05/2018 12:03 AM CDT): Follow-up with her topographical drafter for repeat ultrasounds and biopsies as they direct. Assessment & Plan (12/11/2017 8:54 PM CDT): Follow-up with her student counselor as they direct. Assessment & Plan (11/09/2016 8:55 AM CDT): Follow-up with her student counselor as they direct. Nontoxic single thyroid nodule [...] 08/03/2024 Assessment & Plan (06/26/2021 2:[address] SUPERVISOR): Initially thought due to hamstring tendinitis which has improved with physical therapy but now showing signs of osteoarthritis. Orthopedic referral as requested. Chronic cough 11/22/2019 08/02/2023 Assessment & Plan (07/04/2023 10:19 AM CDT): Restart Anoro and new prescription sent to her pharmacy. Assessment & Plan (01/03/2023 6:06 PM CDT): Stable on Anoro and use albuterol as needed. Assessment & Plan (06/26/2021 2:[address] SUPERVISOR): Stable with Anoro. Pulmonary referral if needed. [...] fall prevention, proper nutrition, and suggested joining [facility] to accomplish most of these goals. Patient [...] 08/02/2023 Assessment & Plan (03/02/2018 3:[address] SUPERVISOR): Appears to be more of a soft [...] this winter. Bone density scan with her asbestos worker. Colonoscopy due no later than November [...] every 10 years. Follow up with her asbestos worker for breast exam, mammogram, bone density [...] yearly. Assessment & Plan (06/26/2021 2:[address] SUPERVISOR): Patient should reduce sugar and carbs, increase [...] Zyrtec. Baldness 04/28/2009 09/26/2017 Hyperthyroidism 04/28/2009 11/11/2017 Encounters Date Type Department Care Team Description 10/29/2024 Orders Only [facility] Infusion Therapy [address] [facility] [address] [place] [address] Vicky Philip MD 10/05/2024 11:00 AM CDT Office Visit [facility] Bone Health [address] [facility] Office [address] [place] [address] Vicky Philip MD Age-related osteoporosis without current pathological fracture (Primary Dx); Bone loss; Atypical fracture of femur, sequela; Prediabetes 10/05/2024 10:30 AM CDT Clinical Support [address] [place] [id number] Age-related osteoporosis without current pathological fracture (Primary Dx); Osteoporosis, unspecified osteoporosis type, unspecified pathological fracture presence 10/05/[address] [place] [address] Vicky Philip MD Treatment Plan Update ([place] ) 09/11/[address] [facility] Accountable Care Organization [address] [place] [address] Patricia Lara 08/09/2024 7:30 AM CDT Office Visit [facility] Medical Group Primary [facility] [place] [address] [facility] [address] [place] [address] Iftikhar Harrison MD Gastroesophageal reflux disease, unspecified whether esophagitis present (Primary Dx); Chest pain, unspecified type; Class 1 obesity due to excess calories with serious comorbidity and body mass index (BMI) of 31.0 to 31.9 in adult; Benign hypertension 08/07/2024 [facility] Post Discharge Follow up phone call [facility] Acute Medicine [address] [place] [address] Mckay Barrera from Last 3 Months Immunizations Immunization Administration Dates Next Due COVID-19 mRNA (Apaja) 0.3 m L (30 mcg) vaccine (12 [...] 11/05/2008 ZOSTER LIVE 10/23/2010 ZOSTER Recombinant 12/14/2017,08/14/2017 Surgical History Surgery Date Site/Laterality Comments OTHER SURGICAL HISTORY Vericose veins, edema, venous insuff: stretching, lasix OTHER SURGICAL HISTORY 04/25/2001 - 04/24/2002 Hysterectomy with BSO OTHER SURGICAL HISTORY 04/25/1986 - 04/24/1987 B CTS: B Carpal Tunnel relaease OTHER SURGICAL HISTORY section x3 OTHER SURGICAL HISTORY 04/25/1964 - 04/24/1965 Ruptured appendix: Appendectomy OTHER SURGICAL HISTORY 07 derm: Dr Grey OTHER SURGICAL HISTORY Formerly Osteopenia, now osteoporosis: BMD with Negative Turner OTHER SURGICAL HISTORY 08- ortho #2: Dr Barrios OTHER SURGICAL HISTORY L Dequerven's Tenosynovitis: Cortisone Dr Barrios CARPAL TUNNEL RELEASE 04/25/1985 - 04/24/1986 Carpal tunnel release THYROIDECTOMY 04/25/2002 - 04/24/2003 Thyroidectomy VAGINAL HYSTERECTOMY 04/25/2001 - 04/24/2002 Hysterectomy, vaginal APPENDECTOMY 04/25/1963 - 04/24/1964 Appendectomy SECTION 04/25/1979 - 04/24/1980 section OTHER SURGICAL HISTORY Thyroid Nodules, partial thyroidectomy 2002: Dr Narayan; levels normal 05/04 OTHER SURGICAL HISTORY thyroid nodules: partial thyroidectomy, yearly US dr steward ANKLE SURGERY 11/01/[address] Espinoza SECTION 1975, 1979, 1983 HYSTERECTOMY 04/25/2003 - 04/24/2004 TUBAL LIGATION 04/25/1983 - 04/24/1984 COLONOSCOPY 03/02/2017 FEMUR SURGERY 04/25/2022 - 04/24/2023 Bilateral fracture in left leg with rishi placement and right leg break with rishi placement. 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-kick boxer Hx Other Medical 06-orthopedic Hx Other Medical Vericose veins, edema, venous insuff Hx Other Medical B CTS Hx Other Medical Ruptured append ix Hx Other Medical Stress Incontin ence Hx Other Medical derm Hx Other Medical AK's Hx Other Medical Formerly Osteop enia, now osteoporosis Hx Other Medical 08- ortho #2 Hx Other Medical L Dequerven's T enosynovitis Hx Other Medical 1983 c section Hypertension Hypertension Osteoporosis Osteoporosis Hx Other Medical Thyroid Nodules , partial thyroidectomy 2002; Outcome: US 2011 no change, TSH normal Hx Other Medical Basal Cell skin Ca, face/ back Hx Other Medical thyroid nodules GERD (gastroesophageal reflux disease) Arthritis Sleep apnea Hypercholesteremia Cancer (HCC) Thyroid disease Gastric reflux Osteoarthritis Torn meniscus 04/01/2021 Osteopenia Carpal tunnel syndrome left 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, left Type 2 diabetes mellitus (HCC) Family History Medical History Relation Name Comments Other Father Spinal Meningit is; /meningitis; Bipolar disorder Mother Julieta Bipolar dis order; Dementia Mother Julieta Dementia; Depression Mother Julieta Goiter Mother Julieta Goiter Heart disease Mother Julieta Heart failure Mother Julieta Congestive hea rt failure; /CHF; Hypertension Mother Julieta Hypertension; Other Mother Julieta ,adopte d, no med h/o of fam; Arthritis Other Clotting disorder Other Gout Other Mental illness Other Stroke Other Stroke; Several Paternal Aunts and Uncles of Strokes or Aneurysm Breast cancer Paternal Grandmother Cancer , breast; Thyroid cancer Sister Shelli Cancer -thyro id; Broken bones Neg Hx Hip fracture Neg Hx Kyphosis Neg Hx Osteoporosis Neg Hx Scoliosis Neg Hx Relation Name Status Comments Father Mother Julieta Other Paternal Grandmother Sister Shelli Social History Tobacco Use Types Packs/Day Years Used Date Smoking Tobacco: Never Smokeless Tobacco: Never Tobacco Cessation:Counseling Given: Not Answered Alcohol Use Standard Drinks/Week Comments Yes 0 (1 standard drink = 0.6 oz pur e alcohol) [facility] Utilities Answer Date Recorded In the past 12 months has e [employer], gas, oil, or water [employer] threatened to shut off services in your [...] week 08/01/2024 How often do you attend [facility] or mu-ism services? Never 08/01/2024 Do you belong to any clubs o r organizations such as synagogue groups, unions, fraternal or athletic groups, or [...] any time in the past 12 m [facility], were you homeless or living in a senior living (including now)? No 08/01/2024 Personal Safety Answer Date Recorded Have you ever been in or are you currently in a harmful physical or emotional relationship or is someone making you feel afraid or unsafe? Denies 07/31/2024 Comments No Sex and Gender Information Value Date Recorded Sex Assigned at Not on file Legal Sex Female 9:[address]CE OF [address] SUPERVISOR Gender Identity Not on file Sexual Orientation Straight 08/28/2018 1: 45 PM CDT Obstetrics History Para Term AB IAB SAB Ectopic Multiple Livin g Live Births 3 3 3 Date Outcome GA Total Labor Labor/2nd/3rd Weight Sex Type Anes PTL Karishma A1 A5 Name Clin Term Term Term Last Filed Vital Signs Vital Sign Reading [...] 10/05/2024 10:21 AM CDT Plan of Treatment Health Maintenance Due Date Last Done Comments Foot Exam 03/02/2019 03/02/2018 Covid-19 Vaccine (2023-2 5 season) 2024 02/06/2024, 08/22/2023, 01/19/2023, Additional history exists DTaP/Tdap/Td Vaccine (3 - Td or Tdap) 10/07/2024 10/07/2014, 11/05/2008 Influenza Vaccine (#1) 2024 , 01/09/2024, 01/19/2023, Additional history exists Breast Cancer Screening-Mammogram 12/27/2024 12/28/2023, 03/24/2023, 01/08/2021, Additional history exists Albumin Creatinine Ratio, Urine 01/04/2025 Lipid Panel 01/09/2025 01/10/2024, 11/23, 12/15/2021, Additional history exists Hemoglobin A1C 01/11/2025 07/11/2024, 12/24, 06/08/2023, Additional history exists Dilated Eye Exam 07/10/2025 07/10/2024 Well Visit 65+ 07/11/2025 07/11/2024, 12/24, 08/02/2023, Additional history exists eGFR 08/02/2025 08/02/2024, 04/0 12/2024, 07/31/2024, Additional history exists Depression Screening 08/09/2025 08/09/2024, 07/11/2024, 01/05/2024, Additional history exists Fall Risk Assessment 08/09/2025 08/09/2024, 08/02/2024, 07/11/2024, Additional history exists Colon Cancer Screening-Colonoscopy 12/08/2025 12/08/2021, 03/02/2017, 03/02/2017, Additional history exists Osteoporosis Screening-Bone Density Scan 10/05/2026 10/05/2024, 07/20/2023, 03/24/2023, Additional history exists Zoster Vaccine Completed 12/14/2017, 07/25, 10/23/2010 Pneumococcal vaccine 65+ Completed 11/22/2019, 10/24 Colon Cancer Screening-CT Colonography Discontinued 12/08/2021, 03/02/2017, 03/02/2017, Additional history exists Colon Cancer Screening-DNA Stool Discontinued 12/08/2021, 03/02/2017, 03/02/2017, Additional history exists Colon Cancer Screening-FIT Discontinued 12/08, 03/02/2017, 03/02/2017, Additional history exists Colon Cancer Screening-Sigmoidoscopy Discontinued 12/08/2021, 03/02/2017, 03/02/2017, Additional history exists Hepatitis B Screening Completed 01/10/2024 Hepatitis C Screening Completed 01/10/2024, 018 Medical Devices Implanted Type Area Welding Pantograph Machine Operator Device Identifier Shelf Expiration Date Model / Serial / Lot Synthes Screw Locking Im Nail 5mm 48mm 04.045.048 - [id number] Implanted:Qty: 2 on 09/06/2022 by Ani Hernandez MD at [facility] Screw Left: Femur Synthes I 04.045.04 8 / / Synthes Screw Bone Locking Cannulated Hip Threaded 6.5x80mm Recon 04.046.680s - [id number] Implanted:Qty: 1 on 09/06/2022 by Ani Hernandez MD at [facility] Screw Left: Femur Synthes I 04.046.68 0S / / Synthes Screw Bone Locking Cannulated Femoral Proximal Full Thread Light Green 5.0x36mm Titanium 04.045.036 - [id number] Implanted:Qty: 1 on 09/06/2022 by Ani Hernandez MD at [facility] Screw Left: Femur Synthes I 04.045.03 6 / / Synthes Nail 140d 400mm 11mm Intramedullary Femoral Greater Trochanter Right Titanium Niobium Aluminum Adult 8 Hole Cannulated Reconstruction Light Green 5/6.5mm Screw 04.033.170s - S04.033.170s - [id number] Implanted:Qty: 1 on 09/04/2022 by Jovan Duenas MD at [facility] Right: Femur Synthes I 03/24/2031 04.033.17 0S / 04.033.17 0S / Synthes Screw Bone Locking Cannulated Hip Threaded 6.5x75mm Recon 04.046.675s - S04.046.675s - [id number] Implanted:Qty: 1 on 09/04/2022 by Jovan Duenas MD at [facility] Right: Femur Synthes I 04.046.67 5S / 04.046.67 5S / Synthes Screw Bone Locking Cannulated Hip Threaded 6.5x85mm Recon 04.046.685s - S04.046.685s - [id number] Implanted:Qty: 1 on 09/04/2022 by Jovan Duenas MD at [facility] Right: Femur Synthes I 04.046.68 5S / 04.046.68 5S / Synthes Screw Bone Locking Cannulated Femoral Proximal Full Thread Light Green 5.0x42mm Titanium 04.045.042 - S04.045.042 - [id number] Implanted:Qty: 1 on 09/04/2022 by Jovan Duenas MD at [facility] Right: Femur Synthes I 04.045.04 2 / 04.045.04 2 / Synthes Screw Locking Im Nail 5mm 48mm 04.045.048 - S04.045.048 - [id number] Implanted:Qty: 1 on 09/04/2022 by Jovan Duenas MD at [facility] Right: Femur Synthes I 04.045.04 8 / 04.045.04 8 / Synthes Nail Intramedullary Titanium Niobium Aluminum Adult 135 D L400 Mm Od10 Mm Femoral Piriformis Fossa Left 8 Hole Cannulated Reconstruction Light Green 5/6.5 Mm Screw 04.033.041s - [id number] Implanted:Qty: 1 on 09/06/2022 by Nguyen Greer MD at [facility] Left: Femur Synthes I [id number] 02/23/2032 04.033.04 1S / / [id number] Explanted Type Area Welding Pantograph Machine Operator Device Identifier Shelf Expiration Date Model / Serial / Lot Synthes Reamer Knee Intramedullary Canal Procedure [id number] Stainless Steel 03.233.010s - S03.233.010s - [id number] Explanted:Qty: 1 on 09/04/2022 by Jovan Duenas MD at [facility] Right: Femur Synthes I 01/23/2032 03.233.010 S / 03.233.010 S / Procedures Procedure Name Priority Date/Time [...] Region Laterality Modality Wrist, Body N/A Radiographic Alina ging Narrative 10/06/2024 11:54 AM CDT Patient Name: Marianne Garcia Date of : 1955 Date of scan: 10/05/2024 Bone mineral density was performed on a [employer] Discovery Densitometer. Based on machine cross-calibration and [...] density scan were prepared by Genoveva Olivia (R)(CBDT) who is accredited by the International Society of Clinical Densitometry. The overall patient assessment and scan interpretation were performed by Vicky Philip M.D. who is certified by the International Society of Clinical Densitometry. [id number] Vicky Philip MD IMG DXA PROCEDURES Final Resu lt * (ABNORMAL) eGFR (08/02/2024 3:57 AM CDT) [facility] eGFR 58(L) >=60 mL/min/1. 73 m2 Comment: [...] of Race in Diagnosing Kidney Disease, JASN 202). The CKD-EPI equation should not be used for patients with unstable renal function and has not been validated in children and those over 70. Current interpretive data was last reviewed 2021. Blood 08/02/2024 3:57 AM CDT 08/02/2024 4:24 AM CDT Anil Holland MD LAB BLOOD ORDERABLES Final Resu lt [facility] ([place]) [address] [facility] [place] [address] * (ABNORMAL) POCT hemoglobin A1c (07/11/2024 10:58 [...] last revised on 2019. Testing performed by: [facility], [address] [place] [address]., [address] Blood 01/10/2024 8:12 AM CDT 01/10/2024 12:49 PM CDT Iftikhar Harrison MD LAB MICROBIOLOGY - GENERAL ORDER BERNARD Final Result [facility] ([place]) [address] [facility] [place] [address] * (ABNORMAL) Lipid panel (01/10/2024 8:12 AM [...] Pediatrics 2011;128:S213 2. NCEP Expert Panel. Circulation 2003;110:227 Current Interpretive Data was last revised on 2017. Testing performed by: [facility], [address] [place] [address]., [address] Triglycerides 164(H) <=149 mg/dL [facility] ([place]) Comment: Interpretive Data Ages < or [...] last revised on 2017. Testing performed by: [facility], [address] [place] [address], [place]., [address] HDL 50 >=40 mg/dL [facility] ([place]) Comment: Interpretive Data Ages < or = 19 years Acceptable: >45 mg/dL Borderline low: 40-45 mg/dL Low: <40 mg/dL Ages > or = 20 years Desirable: >or= 60 mg/dL Low: <40 mg/dL Literature References: 1. Expert Panel on Integrated Guidelines for Cardiovascular Health and Risk Reduction in Children and Adolescents. Pediatrics 2011;128:S213 2. NCEP Expert Panel. Circulation 2003;110:227 Current Interpretive Data was last revised on 2017. Testing performed by: [facility], [address] [place] [address]., [address] LDL, calculated 115 <=129 mg/dL JESUS DELONG [...] last revised on 2023. Testing performed by: [address] [address] Non-HDL Cholesterol 144 mg/dL [facility] ([place]) [...] last revised on 2017. Testing performed by: [address] [address] Chol/HDL ratio 4 [facility]I DELONG ([place]) Comment:Testing performed by : [address] [address] Blood 01/10/2024 8:12 AM CDT 01/10/2024 12:49 PM CDT Iftikhar Harrison MD LAB BLOOD ORDERABLES Final Resul t Performing Organization Address City/[facility] Co de Phone Number [facility] ([place] [address] [facility] Department [place] [address] * Albumin Creatinine Ratio, Urine (01/05/2024 11:06 AM CDT) Albumin Ur <12.0 mg/L Comment: Interpretive Data No reference range established. Current interpretive data was last revised 2018. Creatinine Ur 150.5 mg/dL JESUS Comment: Interpretive Data No reference range established. Current interpretive data was last revised 2018. Albumin Creatinine Ratio, Ur <8 1 - 29 mg/g [facility]US Urine 01/05/2024 11:0 6 AM CDT 01/05/2024 8:52 PM CDT Iftikhar Harrison MD LAB URINE ORDERABLES Final Resul t Performing Organization Address [facility] Co de Phone Number JESUS MARLEY [address] Department [place] [address] * Screening Mammogram Bilateral W Bill (12/28/2023 [...] Routine screening mammography. COMPARISON: Prior mammograms from [facility] dated 03/24/2023, 01/21/2022, 01/08/2021, and 12/19/2019. TECHNIQUE: [...] Loya MD - 12/08/2021 7:[address] [facility] Patient Name: Marianne Garcia Procedure Date: 12/08/2021 7:16 AM Date of : 1955 Admit Type: Outpatient Age: 66 Gender: Female Attending MD: Lilliam Lyoa M.D. Room: [facility] ENDOSCOPY ROOM 1 Note Status: Finalized Patient Profile: This is a 66 year old female. History of polyps. No family history of colon cancer. Procedure: Colonoscopy Indications: High risk colon cancer surveillance: Personalhistory of colonic polyps, Last colonoscopy: February2017 Referring MD: Juan Li M.D. Providers: Satish TalamantesD. Impression: - Two 8 to 14 mm [...] passed under direct vision.The Pediatric Colonoscope [id number] was introduced through the anus and advanced [...] 7:16 AM Procedure Code(s): --- Professional --- 47711, Colonoscopy, flexible; with removal of tumor(s), polyp(s), or other lesion(s) by snare technique Diagnosis Code(s): --- Professional --- Z86.010, Personal history of colonic polyps K64.8, Other hemorrhoids D12.3, Benign neoplasm of transverse colon (hepatic flexure orsplenic flexure) K57.30, Diverticulosis of large intestine without perforation orabscess without bleeding CPT copyright 2020 [employer]. All rights reserved. The codes documented in this report are preliminary and upon manager business development hospice reviewmay be revised to meet current compliance requirements. Recognized by the [employer] for promoting quality in endoscopy Lilliam Loya MD ENDOSCOPY PROCEDURES Final Result from Last 3 Months or Most Recently Relevant to Health Maintenance Insurance AETNA MEDICARE [facility] MEDICARE AET[employer] MEDICARE Advance Directives For more information, please contact: [phone] * Full Code (Latest Code Status on [...] 7:23 AM 12/08/2021 1:42 PM Care Teams Knife Setter Assembler Relationship Specialty Start Date End Date Iftikhar Harrison MD 2 [facility] [address] [address] PCP - General Family Medicine 08/02/23
--- OUTSIDE RECORDS SUMMARY | 2024-11-03 08:36 | XMS_ITS | Encounter Summary ---
Author Organization [facility] Address [address] [place] [address] Phone Care Team Providers Care Carry In Worker Name Role Phone Iftikhar Harrison MD Primary Care Provider [phone] Reason for Visit * Reason Onset Date Comments Treatment Plan Update 10/05/2024 [facility] Encounter Details Date Type Department Care Team (Late st Contact Info) Description 10/05/2024 Telephone [facility] [address] [facility] Medical Office Building [address] [place] [id number] Vicky Philip MD [address] [place] [address] [address] [place] [address] Treatment Plan Update ([facility] ) Social History Tobacco Use Types Packs/Day Years Used Date Smoking Tobacco: Never Smokeless Tobacco: Never Alcohol Use Standard Drinks/Week Comments Yes 0 (1 standard drink = 0.6 oz pur e alcohol) [facility] Utilities Answer Date Recorded In the past 12 months has [employer] electric, gas, oil, or water company threatened to shut off services in your [...] week 08/01/2024 How often do you attend [facility] or jehovah's witness services? Never 08/01/2024 Do you belong to any clubs o r organizations such as mandaen groups, unions, fraternal or athletic groups, or [...] any time in the past 12 m [facility], were you homeless or living in a detention (including now)? No 08/01/2024 Personal Safety Answer Date Recorded Have you ever been in or are you currently in a harmful physical or emotional relationship or is someone making you feel afraid or unsafe? Denies 07/31/2024 Comments No Sex and Gender Information Value Date Recorded Sex Assigned at Not on file Legal Sex Female 9:16 AM [employer] Gender Identity Not on file Sexual Orientation Straight 08/28/2018 1: 45 PM CDT documented as of this encounter Miscellaneous Notes * Telephone Encounter - Ofe Bhagat CMA - 10/05/2024 2:56 PM CDT [place]: [id number] Forteo 560MCG/2.24ML pen-injectors [employer] Medicare Part D [place] Status: Approved Coverage Dates: 04/25/2024-04/24/2025 * Telephone Encounter - Saumya Emery CMA - 10/05/2024 11:46 AM CDT Patient was seen by Dr. Philip today for an office visit. The following was recommended for the patient [place] Additional Comments7 month F/U Pt stated that she will not qualify for financial assistance her income is outside of the parameters. Please obtain Prior Authorization for Forteo Forteo 560mcg/2.24ml Inject 20mcg subcutaneously once daily Per Dr. Philip Thanks! documented in this encounter Plan of Treatment Not on file documented as of this encounter Visit Diagnoses Not on filedocumented in this encounter Care Teams Carry In Worker Relationship Specialty Start Date End Date Iftikhar Harrison MD [address] [facility] [address] PCP - General Family Medicine 08/02/23 documented as of this encounter
[2024-11-03 08:37] VITALS: BP 145/86; PULSE 79; RESP 18; TEMP 37.1; O2SAT 99
--- NOTE | 2024-11-03 08:43 | ED.GENADULT ---
HPI - General Adult General Chief complaint: Eye Problems Stated complaint: Left eye Time Seen by Provider: 11/03/24 08:43 Source: patient Mode of arrival: ambulatory Limitations: no limitations History of Present Illness HPI narrative: 69-year-old female patient presents to the [facility] with complaints of left eye pain and redness. Patient states that she woke up morning and noticed that a blood vessel had popped and her left eye. Patient states she has had this before. Patient states she was doing some house work the day before and states she has had a runny nose and had did blow her nose yesterday. Patient states she has also has had some constipation and has had some straining. Patient states that she came in today because she woke up and the redness to the eye is much worse. Patient states she just went to come and get it checked out make sure it was nothing else. Patient states she has had these before in the past. Patient states the vision is slightly blurry. Denies any headache, pain. Denies any weakness on 1 side of the body or the other. Related Data Home Medications ?Medication ?Instructions ?Recorded ?Confirmed ?Last Taken ?Type albuterol sulfate 90 mcg/actuation 1 inhalation inhalation Q4H 12/27/19 01/13/21 Unknown History aerosol inhaler atorvastatin 80 mg tablet 80 mg PO DAILY 12/27/19 01/13/21 Unknown History calcium carbonate (Albaro-Mint) 260 mg PO DAILY 12/27/19 01/13/21 Unknown History fluticasone propionate 50 1 spray intranasal BID 12/27/19 01/13/21 Unknown History mcg/actuation nasal spray,suspension (Allergy Relief (fluticasone)) omeprazole 20 mg capsule,delayed 20 mg PO DAILY 12/27/19 01/13/21 Unknown History release umeclidinium 62.5 mcg-vilanterol 1 inhalation inhalation DAILY 12/27/19 01/13/21 Unknown History 25 mcg/actuation powdr for inhalation (Anoro Ellipta) amlodipine 5 mg tablet mg 08/23/22 Unknown History amlodipine 10 mg tablet mg 11/03/24 Unknown History metoprolol succinate 25 mg mg PO 11/03/24 Unknown History tablet,extended release 24 hr teriparatide 20 mcg/dose (560 mcg subcut 11/03/24 Unknown History mcg/2.24 mL) subcutaneous pen injector Allergies Allergy/AdvReac Type Severity Reaction Status Date / Time Penicillins Allergy Mild hives Verified 12/01/23 11:29 Sulfa (Sulfonamide Allergy Mild hives Verified 12/01/23 11:29 Antibiotics) GASPER Inhibitors Allergy Hives Verified 12/01/23 11:29 morphine Allergy Hives Verified 12/01/23 11:29 Review of Systems Review of Systems: CONSTITUTIONAL: Denies fever, chills, or sweats. EYES: Positive slight blurry vision noted, positive redness to left eye, denies discharge. positive itching to left eye ENT: Denies rhinorrhea, congestion, sore throat, or otalgia. CARDIOVASCULAR: Denies chest pain, palpitations, or edema. RESPIRATORY: Denies cough or dyspnea. GASTROINTESTINAL: Denies abdominal pain, nausea, vomiting, or diarrhea. GENITOURINARY: Denies dysuria or hematuria. SKIN: Denies rash or itching. MUSCULOSKELETAL: Denies back pain, joint pain, or myalgia. NEUROLOGIC: Denies headache, numbness, or weakness. PSYCHIATRIC: Denies anxiety or depression. [facility] Past Medical History Medical History (Updated 11/03/24 @ 09:14 by KAUSHIK Gamino) Thyroid Nodule Dysphagia GERD (gastroesophageal reflux disease) Spiral fracture of shaft of femur Stress fracture of left femur Bimalleolar avulsion fracture of right ankle Avulsion fracture of right ankle Fracture of rib of right side COPD (chronic obstructive pulmonary disease) MARILYN (obstructive sleep apnea) Hypertension Hyperlipidemia Seasonal allergies Vitamin D deficiency Constipation Diabetes Right thyroid nodule Hypothyroidism Social History Social History Smoking status: Unknown if ever smoked Alcohol intake: unknown Substance use: unknown Substance use type: does not use Gender identity (if verbalized by the patient): Female Spiritual care concerns: No Comments At the time of my signature I agree with nursing past medical history, surgical, social, and family history. There is no relevant family history pertinent to the presenting complaint. Exam Narrative: GENERAL: Well-appearing, well-nourished, and in no acute distress. HEAD: Normocephalic, atraumatic. EYES: PERRLA and EOM intact without limitation or complaint of pain, no periorbital soft tissue swelling ,no erythema, warmth or tenderness noted, no obvious deformity. No crusting or swelling.no tearing or draining.No photophobia. No nystagmus No FB or lesion on lid eversion. Corneas grossly clear, no obvious FB or hyphens/hypopyon. blood noted to the to sclera on the left eye. Lids and lashes clear. the left eye was dyed with 4 seen and examined under the Wood's lamp. No obvious corneal abrasion noted on exam. ENT: Nares With erythema edema noted bilaterally, clear rhinorrhea or epistaxis. Mucous membranes moist. posterior pharynx no erythema, tonsillar enlargement, exudates or lesions present. Bilateral TMs do appear to have a little bit of fluid behind the TM. NECK: Supple. No lymphadenopathy CHEST: Clear to auscultation. No respiratory distress. HEART: Regular rate and rhythm. No murmur heard. Normal peripheral pulses. ABDOMEN: Soft, nontender, nondistended, normal active bowel sounds. EXTREMITIES: Normal range of motion. No edema. SKIN: Warm, dry, no rash. NEURO: No focal deficits. Alert and oriented x3. Course Course Level of Care: Express Care Visit Vital Signs Vital signs: Vital Signs Temperature 37.1 C 11/03/24 08:37 Pulse Rate 79 11/03/24 08:37 Respiratory Rate 18 11/03/24 08:37 Blood Pressure 145/86 H 11/03/24 08:37 Pulse Oximetry 99 11/03/24 08:37 Oxygen Delivery Room Air 11/03/24 08:37 Temperature 37.1 C 11/03/24 08:37 Pulse Rate 79 11/03/24 08:37 Respiratory Rate 18 11/03/24 08:37 Blood Pressure 145/86 H 11/03/24 08:37 Pulse Oximetry 99 11/03/24 08:37 Oxygen Delivery Room Air 11/03/24 08:37 vital signs reviewed. The patient has been informed that they may have pre-hypertension or Hypertension based on a BP reading in the department. I recommend that the patient call the primary care provider listed on their discharge instructions or a physician of their choice this week to arrange follow up for further evaluation of possible pre-hypertension or Hypertension Medical Decision Making MDM Narrative Medical decision making narrative: Discussed with patient that we have ruled out a corneal abrasion that would require antibiotics at this time. Discussed with her this is most likely a subconjunctival hemorrhage of the left eye. Discussed with her that this typically will resolve on its own but it could take several weeks. Discussed with patient that if she develops any severe pain to the eye or starts having weakness on 1 side of body or the other then she needs to go to the emergency department for further evaluation immediately. Discussed with patient highly recommend that she takes an antihistamine to help with the sinus drainage as well as start some MiraLax to help with constipation to decrease risk of straining and making this worse or prevented them in the future. Patient verbalized understanding denies any other questions or concerns at this time. Differential Diagnosis Differential Diagnosis: Differential diagnosis: Conjunctivitis, foreign body, corneal ulcer, Keratitis, dendritic lesions, corneal abrasion, very orbital infection, orbital cellulitis, orbital pain, acute narrow angle glaucoma, detached retina, central retinal artery occlusion, complete hyphema, vitreous hemorrhage, optic neuritis, globe disruption Vital Signs Vital Signs: Vital Signs Temperature 37.1 C 11/03/24 08:37 Pulse Rate 79 11/03/24 08:37 Respiratory Rate 18 11/03/24 08:37 Blood Pressure 145/86 H 11/03/24 08:37 Pulse Oximetry 99 11/03/24 08:37 Oxygen Delivery Room Air 11/03/24 08:37 Temperature 37.1 C 11/03/24 08:37 Pulse Rate 79 11/03/24 08:37 Respiratory Rate 18 11/03/24 08:37 Blood Pressure 145/86 H 11/03/24 08:37 Pulse Oximetry 99 11/03/24 08:37 Oxygen Delivery Room Air 11/03/24 08:37 Critical Care Time Critical Care Time Critical Care Time: No Discharge Plan Discharge Clinical Impression: Subconjunctival hemorrhage of left eye Patient Disposition: Home Condition: Stable Instructions: Antibiotic Form, Blurred Vision (ED), Eye Pain (ED) Additional Instructions: Sometimes small blood vessels in the white of the eye can break, causing a red spot or speck. This is called a subconjunctival hemorrhage. The blood vessels may break when you sneeze, cough, vomit, strain, or bend over. Sometimes there is no clear cause. The blood may look alarming, especially if the spot is large. If there is no pain or vision change, there is usually no reason to worry, and the blood slowly will go away on its own in 2 to 3 weeks. Follow-up care is a gonsalves part of your treatment and safety.?Be sure to make and go to all appointments, and call your doctor or nurse advice line ([phone]?in most provinces and [facility]) if you are having problems. It's also a good idea to know your test results and keep a list of the medicines you take. How can you care for yourself at home? Watch for changes in your eye. It is normal for the red spot on your eyeball to change colour as it heals. Just like a bruise on your skin, it may change from red to brown to purple to yellow.Do not take aspirin or products that contain aspirin, which can increase bleeding. Use acetaminophen (Tylenol) if you need pain relief for another problem.Do not take two or more pain medicines at the same time unless the doctor told you to. Many pain medicines have acetaminophen, which is Tylenol. Too much acetaminophen (Tylenol) can be harmful. When should you call for help? Call your doctor or nurse advice line now?or seek immediate medical care if: You have signs of an eye infection, such as: Pus or thick discharge coming from the eye. Redness or swelling around the eye. A fever.You see blood over the black part of your eye (pupil).You have any changes or problems in your vision.You have any pain in your eye. Watch closely for changes in your health, and be sure to contact your doctor or nurse advice line if: You do not get better as expected. Patient Language: Hungarian Prescriptions: No Action amlodipine 5 mg tablet amlodipine 10 mg tablet metoprolol succinate 25 mg tablet extended release 24 hr PO teriparatide 20 mcg/dose (560mcg/2.24mL) pen injector SUBCUT Anoro Ellipta 62.5-25 mcg/actuation blister with device 1 inhalation INHALATION DAILY atorvastatin 80 mg tablet 80 mg PO DAILY albuterol sulfate 90 mcg/actuation HFA aerosol inhaler 1 inhalation INHALATION Q4H fluticasone propionate [Allergy Relief (fluticasone)] 50 mcg/actuation spray,suspension 1 spray NASAL BID Rx Instructions: administer into each nostril calcium carbonate [Albaro-Mint] 260 mg calcium (650 mg) tablet,chewable 260 mg PO DAILY omeprazole 20 mg capsule,delayed release(DR/EC) 20 mg PO DAILY acetaminophen [Mapap (acetaminophen)] 325 mg Tablet 650 mg PO Q6H PRN (Reason: Mild Pain (1-3) Or Fever) Qty: 30 0RF cetirizine 10 mg Tablet 10 mg PO DAILY PRN (Reason: PRN) Qty: 30 0RF losartan 50 mg tablet 50 mg PO DAILY Qty: 30 0RF Follow-up/Referrals: Guillermo,MD Juan [Primary Care Provider] - Time of Disposition: 09:10
== END 2024-11-03 09:14 | disposition home or self-care (01) ==
PROVIDERS: Emergency Provider Nurse Practitioner Family; PCP Internal Medicine
DX: H11.32 Conjunctival hemorrhage, left eye (principal); K21.9 Gastro-esophageal reflux disease without esophagitis; J44.9 Chronic obstructive pulmonary disease, unspecified; I10 Essential (primary) hypertension; E78.5 Hyperlipidemia, unspecified; E11.9 Type 2 diabetes mellitus without complications; Z79.85 Long-term (current) use of injectable non-insulin antidiabetic drugs; E03.9 Hypothyroidism, unspecified
CPT/HCPCS: 99213; A9270; G0463